=== PATIENT | female | born 1950 | race Caucasian/White ===

== ENCOUNTER → 2020-05-21 13:45 | Outpatient (CLI) | payer MEDICARE, SELFPAY ==
--- NOTE | ~2020-05-21 | MM_ITS ---
EXAMINATION: MM screening [facility] BI w victor m HISTORY: Screening mammogram TECHNIQUE: Craniocaudal and mediolateral oblique 3-D tomosynthesis images were obtained and synthetic 2-D images were generated. CAD analysis was submitted and interpreted. COMPARISON: 03/24/2019, 12/17/2017, 10/24/2016 BREAST PARENCHYMAL COMPOSITION: The breasts are almost entirely fatty. FINDINGS: Stable intramammary lymph nodes are noted in the upper outer quadrant of the breasts. There is no evidence of suspicious mass, calcification, or architectural distortion to suggest malignancy in either breast. There has been no suspicious interval change. IMPRESSION: 1. No mammographic evidence of malignancy. 2. Recommend routine screening mammography in one year. BI-RADS Category 2: Benign finding(s). Reviewed, dictated and finalized at location A. EL SHADER
== END ==
PROVIDERS: Visit Provider Physician Assistant
DX: Z12.31 Encounter for screening mammogram for malignant neoplasm of breast (principal)
CPT/HCPCS: 77063; 77067

== ENCOUNTER → 2020-12-21 12:24 | Outpatient (CLI) | payer MEDICARE, SELFPAY ==
--- NOTE | ~2020-12-21 | MR_ITS ---
EXAMINATION: MR hand RT wo/w con, MR hand LT wo/w con DATE: 12/21/2020 14:04 INDICATION: Rheumatoid arthritis with rheumatoid factor TECHNIQUE: 1. Magnetic resonance imaging (MRI) of the right hand was performed without and with 18 mL Multihance intravenous contrast to include the metacarpals and digits. Proximal carpal rows excluded from the f [id number]. Sequences included axial, sagittal and coronal T1-weighted FSE and T1-weighted FS FSE T 1-weighted FS FSE . 2. Magnetic resonance imaging (MRI) of the right hand was performed without and with 18 mL Multihance intravenous contrast utilizing the same contrast bolus as for the contralateral right hand.. Field-o f-view again includes the metacarpals and digits but excludes the proximal carpal row. Sequences incl uded axial, sagittal and coronal T1-weighted FSE and T1-weighted FS FSE T1-weighted FS FSE . COMPARISON: Bilateral hand radiographs dated 08/15/2018 FINDINGS: Normal alignment at both hands. No fracture. Polyarticular osteoarthritis characterized by nonuniform joint space narrowing and/or marginal osteophytes, severe at the bilateral first interphalangeal shruti nts, moderate severity at the bilateral first carpal metacarpal joints and several bilateral distal i nterphalangeal joints and mild osteoarthritis at the bilateral triscaphe and at many of the remaining metacarpophalangeal and interphalangeal joints. Degenerative subchondral cyst at the base of the rig ht first metacarpal. No joint effusions or abnormal enhancing synovitis at the joint spaces. No enhan cing erosions to suggest inflammatory arthritis such as rheumatoid. The collateral ligament complex a t the metacarpophalangeal and interphalangeal joints are normal. The flexor and extensor tendons are normal. IMPRESSION: 1. Polyarticular osteoarthritis, severe at the bilateral first interphalangeal joints and mild to mod erate with typical distribution at the remaining joints in the bilateral hands. No erosions or enhanc ing synovitis to suggest an inflammatory arthritis such as rheumatoid. Reviewed, dictated and finalized at location A. IMPRESSION: 1. Polyarticular osteoarthritis, severe at the bilateral first interphalangeal joints and mild to moderate with typical distribution at the remaining joints i n the bilateral hands. No erosions or enhancing synovitis to suggest an inflamm atory arthritis such as rheumatoid.
[2020-12-21 12:51] LABS: Estimated Glomerular Filt Rate > 60
== END ==
PROVIDERS: PCP Family Medicine; Visit Provider Internal Medicine
DX: M06.041 Rheumatoid arthritis without rheumatoid factor, right hand (principal); M06.042 Rheumatoid arthritis without rheumatoid factor, left hand
CPT/HCPCS: 73220; A9577

== ENCOUNTER 2021-02-28 02:00 | Day surgery (SDC) | payer MEDICARE, SELFPAY ==
[2021-02-16 15:53] VITALS: BMI 32.3
[2021-02-28 07:08] VITALS: BP 151/75; PULSE 101; RESP 22; TEMP 36.6; O2SAT 98; BMI 31.3
--- NOTE | 2021-02-28 07:08 | WPDANESEPPF ---
Anes - Initial Pre Proc Eval Procedure: Operation Date: 02/28/21 08:15 Proposed Procedures p Screening Colonoscopy - Jermain Acosta MD Date/Time: 02/28/21 07:08 Surgeon: Jermain Acosta MD Pre Op Diagnosis: hx of colon polyps Patient Data Age: 70 Gender: F Height: 1.68 m Weight: 90.9 kg Allergies Allergy/AdvReac Type Severity Reaction Status Date / Time piperacillin Allergy Unknown Rash Verified 02/28/21 07:05 sulfamethizole Allergy Unknown Unknown Verified 02/28/21 07:05 tazobactam Allergy Unknown Rash Verified 02/28/21 07:05 trimethoprim Allergy Unknown Unknown Verified 02/28/21 07:05 Home Medications Medication Instructions Recorded Confirmed Type aspirin 81 mg tablet,delayed 81 mg PO DAILY 07/17/19 02/16/21 History release cetirizine 10 mg tablet 5 mg PO DAILY PRN 07/17/19 02/16/21 History conjugated estrogens 0.625 mg 0.625 mg PO DAILY 07/17/19 02/16/21 History tablet ferrous sulfate 325 mg (65 mg 325 mg PO DAILY 07/17/19 02/16/21 History iron) tablet hydrochlorothiazide 25 mg tablet 12.5 mg PO DAILY #90 tablet 01/23/20 02/16/21 Rx omeprazole 40 mg capsule,delayed 40 mg PO DAILY #90 cap 03/26/20 02/16/21 Rx release levothyroxine 75 mcg tablet 75 mcg PO DAILY #90 tablet 08/16/20 02/16/21 Rx buspirone 7.5 mg tablet 7.5 mg PO BID #60 tablet 09/23/20 02/16/21 Rx amlodipine 5 mg tablet 5 mg PO DAILY #90 tablet 10/21/20 02/16/21 Rx pravastatin 20 mg tablet 20 mg PO DAILY #90 tablet 10/21/20 02/16/21 Rx folic acid 1 mg tablet 1 mg PO DAILY #90 tablet 12/01/20 02/16/21 Rx metformin 500 mg tablet 500 mg PO BID #180 tablet 12/30/20 02/16/21 Rx dicyclomine 20 mg tablet 20 mg PO DAILY #90 tablet 01/27/21 02/16/21 Rx losartan 100 mg tablet 100 mg PO DAILY #90 tablet 01/27/21 02/16/21 Rx duloxetine 60 mg capsule,delayed 60 mg PO BID #180 cap 02/01/21 02/16/21 Rx release leflunomide 20 mg tablet 20 mg PO DAILY #30 tablet 02/01/21 02/16/21 Rx Patient hx anesthesia problems: none Family hx anesthesia problems: none PMFSH Past Medical History Medical History Acute rhinosinusitis Arthritis Kj hy kid w cr kid I-IV CKD (chronic kidney disease), stage III Depression Diabetes Dysuria Hypothyroid Irritable bowel disease Postablative hypothyroidism Seronegative rheumatoid arthritis of both hands Thyroid disease Type 2 diabetes mellitus with chronic kidney disease Surgical History Surgical History H/O repair of rotator cuff H/O: hysterectomy Hx of cholecystectomy Family History Family History Grandparent Diabetes mellitus Family history of cardiovascular disease Sibling Family history of malignant neoplasm Mother Family history of Parkinson's disease Father Family history of Hodgkin's lymphoma Other Family history of arthritis Social History Social History Smoking status: Former smoker Tobacco type: cigarettes Smoking end date: 07/09/03 Alcohol intake: never Substance use: never Substance use type: does not use Living arrangements: with family Gender identity (if verbalized by the patient): Female Spiritual care concerns: No Anes - Eval Final PreProcedure Day of Procedure 02/28/21 07:08 Patient weight: obese Heart: regular rate and rhythm Lungs: clear to auscultation and normal air movement Airway: Mallampati scale class II Neurological: alert and oriented Last oral intake: >/= 8 hours ASA classification: III Emergent: no Anesthetic plan: proceed Anesthesia type and monitoring: general GIVS Informed Consent: The patient's anesthetic plan and its attendant risks and benefits were discussed with the patient/family/POA. Questions were solicited and answers provided to the satisfaction of the patient/family/POA.
--- NOTE | 2021-02-28 07:20 | WPDGICN ---
Assessment and Plan Assessment and plan (1) History of colon polyps: Code(s): Z86.010 - Personal history of colonic polyps Status: Acute Assessment and Plan: Patient has a history of colon polyps most recently 2016. Plan is for surveillance colonoscopy at this time. Consider follow-up exams at 5 year intervals. (2) Irritable bowel syndrome with diarrhea: Code(s): K58.0 - Irritable bowel syndrome with diarrhea Status: Acute Assessment and Plan: Patient has diarrhea most consistent with irritable bowel syndrome occurs intermittently. Plan is to add fiber supplementation. Current trial of dicyclomine has failed would suggest discontinuing this medication and less cramps occur. Additionally diarrhea may be related to use medications such as metformin in re considering use of this medication should be considered. GI Consult Note Consult date/time: 02/28/21 07:20 HPI: Sarina Guzman is a 70 year old female Presents for screening colonoscopy. Patient has a known history of colon polyps most recently [address] Ramirez. patient denies any blood in her stools. She does note irregular bowel habits with diarrhea alternating with formed stools on the same day. She states this pattern has been present for several years. She denies any weight loss or bleeding. She is on no specific diet. In the past she was told she had diverticulosis. Family history is noncontributory. Patient does have a past medical history of diabetes and is on metformin. She does on multiple at home other medications include dicyclomine as treatment for known irritable bowel syndrome. Review of Systems Review of Systems: All systems reviewed & are unremarkable except as noted in HPI and below PMFSH Past Medical History Medical History (Updated 02/28/21 @ 07:23 by Jermain Acosta MD) Acute rhinosinusitis Arthritis Kj hy kid w cr kid I-IV CKD (chronic kidney disease), stage III Depression Diabetes Dysuria Hypothyroid Irritable bowel disease Postablative hypothyroidism Seronegative rheumatoid arthritis of both hands Thyroid disease Type 2 diabetes mellitus with chronic kidney disease Surgical History Surgical History H/O repair of rotator cuff H/O: hysterectomy Hx of cholecystectomy Family History Family History Grandparent Diabetes mellitus Family history of cardiovascular disease Sibling Family history of malignant neoplasm Mother Family history of Parkinson's disease Father Family history of Hodgkin's lymphoma Other Family history of arthritis Social History Social History Smoking status: Former smoker Tobacco type: cigarettes Smoking end date: 07/09/03 Alcohol intake: never Substance use: never Substance use type: does not use Living arrangements: with family Gender identity (if verbalized by the patient): Female Spiritual care concerns: No Meds Home Medications and Allergies Home Medications Medication Instructions Recorded Confirmed Type aspirin 81 mg tablet,delayed 81 mg PO DAILY 07/17/19 02/16/21 History release cetirizine 10 mg tablet 5 mg PO DAILY PRN 07/17/19 02/16/21 History conjugated estrogens 0.625 mg 0.625 mg PO DAILY 07/17/19 02/16/21 History tablet ferrous sulfate 325 mg (65 mg 325 mg PO DAILY 07/17/19 02/16/21 History iron) tablet hydrochlorothiazide 25 mg tablet 12.5 mg PO DAILY #90 tablet 01/23/20 02/16/21 Rx omeprazole 40 mg capsule,delayed 40 mg PO DAILY #90 cap 03/26/20 02/16/21 Rx release levothyroxine 75 mcg tablet 75 mcg PO DAILY #90 tablet 08/16/20 02/16/21 Rx buspirone 7.5 mg tablet 7.5 mg PO BID #60 tablet 09/23/20 02/16/21 Rx amlodipine 5 mg tablet 5 mg PO DAILY #90 tablet 10/21/20 02/16/21 Rx pravastatin 20 mg tablet 20 mg PO DAILY #90 tab
[2021-02-28 07:23] LABS: Glucose Point of Care 152 mg/dl (65-105)
[2021-02-28] MEDS: LACTATED RINGERS 1,000 ML 150 ML IV CONT (07:23)
[2021-02-28 08:22] VITALS: BP 122/64; PULSE 82; RESP 18; O2SAT 96
[2021-02-28 08:32] VITALS: BP 134/69; PULSE 80; RESP 18; O2SAT 97
[2021-02-28 08:40] VITALS: BP 150/66; PULSE 76; RESP 18; O2SAT 96
== END 2021-02-28 08:57 | disposition home or self-care (01) ==
PROVIDERS: PCP Family Medicine; Visit Provider Internal Medicine Gastroenterology
PROC: 0DJD8ZZ Inspection of Lower Intestinal Tract, Via Natural or Artificial Opening Endoscopic (ICD-10-PCS; CPT 45378; principal; 2021-02-28 08:15)
DX: Z12.11 Encounter for screening for malignant neoplasm of colon (principal); K64.8 Other hemorrhoids; K57.30 Diverticulosis of large intestine without perforation or abscess without bleeding; Z86.010 Personal history of colon polyps; K58.0 Irritable bowel syndrome with diarrhea; Z79.82 Long term (current) use of aspirin; Z79.84 Long term (current) use of oral hypoglycemic drugs; Z87.891 Personal history of nicotine dependence; M19.90 Unspecified osteoarthritis, unspecified site; F32.9 Major depressive disorder, single episode, unspecified; E89.0 Postprocedural hypothyroidism; M06.042 Rheumatoid arthritis without rheumatoid factor, left hand; M06.041 Rheumatoid arthritis without rheumatoid factor, right hand; E11.22 Type 2 diabetes mellitus with diabetic chronic kidney disease; N18.30 Chronic kidney disease, stage 3 unspecified; E66.9 Obesity, unspecified; Z68.31 Body mass index [BMI] 31.0-31.9, adult
CPT/HCPCS: G0105; 82948; J2704; J7120

== ENCOUNTER → 2021-07-26 11:23 | Outpatient (CLI) | payer MEDICARE, SELFPAY ==
--- NOTE | ~2021-07-26 | XR_ITS ---
EXAMINATION: XR shoulder LT min 2V DATE: 07/26/2021 12:04 INDICATION: Left shoulder pain TECHNIQUE: AP internally and externally rotated, AP oblique externally rotated and axillary views of the left shoulder were obtained. COMPARISON: None FINDINGS: Prior distal left clavicle resection with widening of the left acromioclavicular joint space. Alignme nt is otherwise normal. No fracture.Mild glenohumeral osteoarthritis with mild nonuniform joint space narrowing in the Grashey projection and small marginal osteophytes about the glenoid and humeral hea d. Visualized portions of the lungs are clear. Soft tissues are unremarkable. IMPRESSION: 1. Mild left glenohumeral osteoarthritis. 2. Distal left clavicle resection. Reviewed, dictated and finalized at location A. MANAGER
--- NOTE | ~2021-07-26 | XR_ITS ---
EXAMINATION: XR_CERV2-3V_CR DATE: 07/26/2021 12:04 INDICATION: Pain in unspecified shoulder. TECHNIQUE: 3 views of cervical spine were obtained. COMPARISON: None. FINDINGS: Bone alignment is normal. Vertebral body heights are normal. There is moderately decreased disc height at C4-C5, mildly decreased disc height at C5-C6, and moderately decreased disc height at C6-C7. There is multilevel uncovertebral joint osteoarthritis, moderate to severe bilaterally from C4 -C5 through C6-C7. The facet joints are unremarkable. There is mild mild central canal stenosis at C4 -C5, C5-C6, and C6-C7. No prevertebral soft tissue swelling. IMPRESSION: 1. Moderate cervical spondylosis. Reviewed, dictated and finalized at location A. BALL SCOUT
== END ==
PROVIDERS: Visit Provider Physician Assistant
DX: M25.519 Pain in unspecified shoulder (principal); M54.2 Cervicalgia; M47.812 Spondylosis without myelopathy or radiculopathy, cervical region; M19.012 Primary osteoarthritis, left shoulder
CPT/HCPCS: 72040; 73030

== ENCOUNTER → 2021-08-01 13:36 | Outpatient (CLI) | payer MEDICARE, SELFPAY ==
--- NOTE | ~2021-08-01 | MM_ITS ---
EXAMINATION: MM screening [facility] BI w [place] m HISTORY: Screening mammogram TECHNIQUE: Craniocaudal and mediolateral oblique 3-D tomosynthesis images were obtained and synthetic 2-D images were generated. CAD analysis was submitted and interpreted. COMPARISON: 05/21/2020, 03/24/2019, 12/17/2017 BREAST PARENCHYMAL COMPOSITION: The breasts are almost entirely fatty. FINDINGS: There is no evidence of suspicious mass, calcification, or architectural distortion to sugg est malignancy in either breast. There has been no suspicious interval change. IMPRESSION: 1. No mammographic evidence of malignancy. 2. Recommend routine screening mammography in one year. BI-RADS Category 1: Negative Reviewed, dictated and finalized at location A. ICAL LAB SPECIALIST
== END ==
PROVIDERS: PCP Family Medicine; Visit Provider Family Medicine
DX: Z12.31 Encounter for screening mammogram for malignant neoplasm of breast (principal)
CPT/HCPCS: 77063; 77067

== ENCOUNTER 2021-11-04 12:30 | Outpatient (RCR) | payer MEDICARE, SELFPAY ==
[2021-09-29 12:30] VITALS: BP_SYST 180
--- NOTE | 2021-09-29 13:39 | PTOPEVAL ---
Thank you for referring Sarina Guzman to [facility] [place].? The patient is scheduled to be seen for therapy?2 x/week for 6 weeks. Please review, sign, date and return this plan of care ORALIA. I agree with and certify that the following plan of care is medically necessary. Referring Physician Date Attending Provider: Kiara Soto PA-C Referring Provider: Kiara Soto PA-C Problem Diagnosis neck and right UE pain Onset 6 wks ago Additional Evaluation Detail x-ray: showed Moderate changes /degeneration of the cervical spine and Osteoarthritis of the shoulder and left clavicle resection. Subjective Information She reports limitations with Query Text:As Reported By Patient/ lifting, reaching task and ADL's. Family She has difficulty with sleeping due to left UE symptoms. She is also having increased symptoms of right hand. She is not sure if the increased symptoms are from her shoulder or neck region. History of 'pinched nerve of neck . Denies any HEP or fitness program. Diagnostic Tests X-Rays For This Problem Yes Previous Treatments Previous Treatments For This Problem chiropractor Pain Assessment Left Arm(s) Reported Pain Level 8 Pain Description Numbness,Radiating,Tingling Pain Frequency Continuous Lowest Pain Intensity 4 Greatest Pain Intensity 10 Pain Aggravating Factors Prolonged Position Posterior Neck Reported Pain Level 0 Lowest Pain Intensity 0 Greatest Pain Intensity 0 Cervical and Lumbar ROM Cervical ROM Cervical Flexion (0-60) 70:Active in Degrees Cervical Extension (0-70) 60:Active in Degrees Cervical Lateral Flexion Right (0-50) 15:Active in Degrees Cervical Lateral Flexion Left (0-50) 20Active in Degrees Cervical Rotation Right (0-90) 40Active in Degrees Cervical Rotation Left (0-90) 52:Active in Degrees Cervical ROM Comments tightness with rotation and pain with tightness on lateral flex Upper Extremity Range of Motion Scapular/ Shoulder Range of Motion Left Shoulder Flexion - Active 145 Shoulder Flexion - Passive 170 Shoulder Extension - Active 35 Shoulder Abduction - Active 135 Shoulder Abduction - Passive 180 Shoulder Medial Rotation - Active 70 Shoulder M
--- NOTE | 2021-11-04 13:18 | PTOPEVAL ---
Thank you for referring Sarina Guzman to [facility].? Pt referred to therapy due to actue flare-up of neck pain with left UE symptoms and recent onset of right hand pain. She has attended 11 therapy visits from 09/29/21 to 11/04/21. As a result of therapy services she reportes improved pain and symptoms, improved shoulder motion with daily task, improved sleeping, and improved ADL's/IADL's with decreased symptoms. She demonstrates improved neck and shoulder motion, improved shoulder strength, improved scapular stability, and improved tissue restrictions. Shoulder pain and disabilty index (SPADI) 35% impaired at eval and 9% impaired at update. Sarina has achieved or partially achieved her therapy goals at this time. She demonstrates understanding and compliance with HEP. She has reached maximal potential with skilled therapy services at this time. Will DC skilled PT services with recommendations for her to cont with her HEP Please review, sign, date and return this discharge summary ORALIA. I agree with and certify that the following plan of care is medically necessary. Referring Physician Date Attending Provider: Kiara Soto PA-C Referring Provider: Kiara Soto PA-C Diagnosis neck and right UE pain Onset 6 wks ago Additional Evaluation Detail x-ray: showed Moderate changes /degeneration of the cervical spine and Osteoarthritis of the shoulder and left clavicle resection. Subjective Information Reports her pain and symptoms Query Text:As Reported By Patient/ have improved with therapy. Family She has decreased intensity of the neck and UE. She is not waking at night due to pain and symptoms. She is sleeping 8 hrs. She is performing her HEP and neck distraction unit consistently. Reports improved ADL's/IADL's. Pain Assessment Self Report Pain Assessment Left Arm(s) Reported Pain Level 3 Pain Description Aching,Soreness Lowest Pain Intensity 0 Greatest Pain Intensity 3 Posterior Neck Reported Pain Level 3 Lowest Pain Intensity 0 Greatest Pain Intensity 3 Cervical and Lumbar ROM Cervical ROM Cervical Flexion (0-60) 70 Degrees Cervical Extension (0-70) 60 Degrees Cervical Lateral Flexion Right (0-50) 20 Degrees Cervical Lateral Flexion Left (0-50) 25 Degrees Cervical Rotation Right (0-90) 55 Degrees Cervical Rotation Left (0-90) 55 Degrees Cervical ROM Comments no pain, mild tightness noted Upper Extremity Range of Motion Scapular/ Shoulder Range of Motion Left Shoulder Flexion - Active 160 Shoulder Extension - Active 50 Shoulder Abduction - Active
== END 2021-11-04 13:59 | disposition home or self-care (01) ==
LOC: ANHPT 12:30
PROVIDERS: PCP Family Medicine; Referring Provider Physician Assistant; Visit Provider Physician Assistant
DX: M25.511 Pain in right shoulder (principal); M79.641 Pain in right hand; M54.2 Cervicalgia
CPT/HCPCS: 97014; 97110; 97112; 97140; 97162; G0283

== ENCOUNTER → 2021-11-25 06:54 | Outpatient (CLI) | payer MEDICARE, SELFPAY ==
--- NOTE | ~2021-11-25 | MR_ITS ---
EXAMINATION: MR cervical spine wo con DATE: 11/25/2021 07:32 INDICATION: Neck pain. TECHNIQUE: Magnetic resonance imaging (MRI) of the cervical spine was performed without intravenous c ontrast. Sequences included sagittal T2-weighted FSE, sagittal T2-weighted FS FSE, sagittal T1-weight ed FSE, axial MERGE, and axial T2-weighted FSE. COMPARISON: Cervical spine MRI 05/30/2014 FINDINGS: 2 mm anterolisthesis of C7 on T1. Vertebral body heights are normal. There is mildly decrea sed disc height at C4-C5, C5-C6, and C6-C7. The spinal cord signal intensity is normal. The following disc levels are specifically discussed: C2-C3: The disc does not extend beyond the endplate margin. There is mild bilateral uncovertebral shruti nt osteoarthritis. There is mild bilateral facet joint osteoarthritis. There is no neural foraminal s tenosis. There is no central canal stenosis. C3-C4: There is a central extrusion. There is mild bilateral uncovertebral joint osteoarthritis. Ther e is no facet joint osteoarthritis. There is mild right neural foraminal stenosis. There is mild cent ral canal stenosis. C4-C5: The disc is bulging with superimposed central extrusion. There is severe bilateral uncovertebr al joint osteoarthritis. There is mild bilateral facet joint osteoarthritis. There is moderate bilate ral neural foraminal stenosis. There is moderate central canal stenosis with ventral and dorsal inden tation of the spinal cord. C5-C6: The disc is bulging with superimposed left central extrusion. There is severe bilateral uncove rtebral joint osteoarthritis. There is mild bilateral facet joint osteoarthritis. There is moderate b ilateral neural foraminal stenosis. There is moderate central canal stenosis with ventral and dorsal indentation of the spinal cord. C6-C7: The disc is bulging. There is severe bilateral uncovertebral joint osteoarthritis. There is mi ld bilateral facet joint osteoarthritis. There is moderate bilateral neural foraminal stenosis. There is mild central canal stenosis with ventral indentation of the spinal cord. C7-T1: The disc does not extend beyond the endplate margin. There is no uncovertebral joint osteoarth ritis. There is severe bilateral facet joint osteoarthritis. There is mild bilateral neural foraminal stenosis. There is no central canal stenosis. IMPRESSION: 1. Moderate cervical spondylosis, mildly worsened from 05/30/2014. Reviewed, dictated and finalized at location A.
== END ==
PROVIDERS: PCP Family Medicine; Visit Provider Physician Assistant
DX: M47.813 Spondylosis without myelopathy or radiculopathy, cervicothoracic region (principal); M48.03 Spinal stenosis, cervicothoracic region
CPT/HCPCS: 72141

== ENCOUNTER → 2022-03-20 11:17 | Outpatient (CLI) | payer MEDICARE, SELFPAY ==
--- NOTE | ~2022-03-20 | XR_ITS ---
EXAMINATION: XR shoulder RT min 2V DATE: 03/20/2022 11:34 INDICATION: Right shoulder pain TECHNIQUE: AP internally and externally rotated, AP oblique externally rotated and axillary views of the right shoulder were obtained. COMPARISON: None FINDINGS: Normal alignment. No fracture.Moderate right glenohumeral and acromioclavicular osteoarthritis. Nume katia tiny densities are present within the patient's clothing which project over the soft tissues whi ch are otherwise unremarkable. Visualized right lung is clear. IMPRESSION: Moderate right glenohumeral and acromioclavicular osteoarthritis. Reviewed, dictated and finalized at location A.
== END ==
PROVIDERS: PCP Family Medicine; Visit Provider Physician Assistant
DX: M25.511 Pain in right shoulder (principal); M19.011 Primary osteoarthritis, right shoulder
CPT/HCPCS: 73030

== ENCOUNTER 2022-07-11 09:41 | Outpatient (CLI) | payer MEDICARE, SELFPAY ==
--- NOTE | ~2022-07-11 | NM_ITS ---
EXAMINATION: NM lawanda stress w perfusion DATE: 07/11/2022 12:24 INDICATION: Abnormal electrocardiogram. Dyspnea on exertion. TECHNIQUE: Rest images were obtained following intravenous administration of 9.9 mCi Tc99m tetrofosmi n (Myoview). The patient was infused intravenously with Lexiscan (regadenoson). Then, 31.1 mCi Tc99m tetrofosmin (Myoview) was administered intravenously, and stress images were obtained. Data was recon structed into short axis and horizontal and vertical long axis SPECT images. Gated SPECT images were also obtained. COMPARISON: None. FINDINGS: There is no definite reversible or fixed perfusion abnormality to suggest ischemia or infar ction. There is no segmental wall motion abnormality. Left ventricular ejection fraction measures > 70%. IMPRESSION: 1. No definite ischemia or infarct. 2. Normal left ventricular ejection fraction measuring > 70%. Reviewed, dictated and finalized at location A. [employer] H[employer]
--- NOTE | 2022-07-11 10:07 | EST_ITS ---
Patient Info Name: Sarina Guzman Age: 72 years : 1950 Gender: Female Ht: 66 in Wt: 210 lbs BSA: 2.14 m2 HR: 83 bpm BP: 141 / 69 mmHg Heart Rhythm: Right Bundle Branch Block Exam Date: 07/11/2022 10:46 AM Exam Location: [facility] Stress Patient Status: Outpatient Admit Date: 07/11/2022 Staff Ordering Physician: Kiara Cortez PA-C Attending Provider: Kiara Cortez PA-C Exercise Technologist: Paige Kennedy, CT Exam Type: CA stress lawanda w NM Study Info Indications R94.31 - Abnormal electrocardiogram ECG EKG A regadenoson stress test was performed. Summary 1. No abnormal ST/T wave changes diagnostic of ischemia with Lexiscan. 2. Please correlate with nuclear medicine images, reported separately. Protocol: Lexiscan Stress ECG Details Stage: REST Duration (min): 1 min : 28 sec HR (bpm): 85 SBP (mmHg): 141 DBP (mmHg): 69 Stage: REST Duration (min): 1 min : 49 sec HR (bpm): 83 SBP (mmHg): 141 DBP (mmHg): 69 Stage: REST Duration (min): 6 min : 14 sec HR (bpm): 82 SBP (mmHg): 141 DBP (mmHg): 69 Stage: STAGE 1 Duration (min): 0 min : 59 sec HR (bpm): 96 SBP (mmHg): 144 DBP (mmHg): 73 Stage: RECOVERY Duration (min): 1 min : 0 sec HR (bpm): 100 SBP (mmHg): 144 DBP (mmHg): 73 Stage: RECOVERY Duration (min): 2 min : 0 sec HR (bpm): 93 SBP (mmHg): 144 DBP (mmHg): 73 Stage: RECOVERY Duration (min): 3 min : 0 sec HR (bpm): 89 SBP (mmHg): 151 DBP (mmHg): 75 Stage: RECOVERY Duration (min): 3 min : 2 sec HR (bpm): 90 SBP (mmHg): 151 DBP (mmHg): 75 Rest HR: 82 bpm Peak HR: 100 bpm Rest Sys BP: 141 mmHg Peak Sys BP: 151 mmHg Max Pred HR: 146 bpm % Max Pred HR: 68 % Target HR: 124 bpm Max RPP: 15,100 bpm*mmHg Total Time: 1 min : 0 sec Rest Whitehead BP: 69 mmHg Peak Whitehead BP: 75 mmHg Total Dose: 0.4 mg Resting ECG Sinus rhythm with right bundle branch block. Stress ECG Sinus rhythm with right bundle branch block. No abnormal ST/T wave changes diagnostic of ischemia with Lexiscan. Arrhythmias Occasional PVCs. Report Signatures
== END 2022-07-11 09:42 | disposition home or self-care (01) ==
PROVIDERS: PCP Family Medicine; Visit Provider Physician Assistant
DX: R06.09 Other forms of dyspnea (principal); K76.0 Fatty (change of) liver, not elsewhere classified; I10 Essential (primary) hypertension; E78.5 Hyperlipidemia, unspecified; E11.9 Type 2 diabetes mellitus without complications; R94.31 Abnormal electrocardiogram [ECG] [EKG]; I45.10 Unspecified right bundle-branch block
CPT/HCPCS: 78452; 93017; A9502; J2785

== ENCOUNTER → 2022-10-04 11:10 | Outpatient (CLI) | payer MEDICARE, SELFPAY ==
--- NOTE | ~2022-10-04 | XR_ITS ---
Clinical Indication: Chronic cough PA and lateral views of the chest: Comparison: None Findings: The lungs are clear, without evidence of focal consolidation or pleural effusion. Cardiome diastinal silhouette is within normal limits. Bones and soft tissues are unremarkable. Impression: Normal chest. Reviewed, dictated and finalized at location . Impression: Normal chest.
== END ==
PROVIDERS: PCP Family Medicine; Visit Provider Physician Assistant
DX: R05.3 Chronic cough (principal)
CPT/HCPCS: 71046

== ENCOUNTER 2022-11-22 13:30 | Outpatient (RCR) | payer MEDICARE, SELFPAY ==
[2022-11-06 10:50] VITALS: BP_SYST 155
--- NOTE | 2022-11-06 11:33 | PTOPEVAL1 ---
Assessment and note entered by Donna Clements, PT Evaluation Information Assessment Status Evaluation Diagnosis R shoulder impingement Onset May 2022 Subjective Information over the past 6 months, more pain in shoulder; no trauma or injury to shoulder; had injection at dr office- helped for about 2 weeks, now pain has returned; R shoulder xray 2021 reports: moderate R glenohumeral and AC joint OA; cervical MRI 2021: decrease disc height C 4-5-6-7 facet joint OA and disc bulging at C 3-4, C 4-5 and C 5-6; Reported Pain Level Pain Score Self Report Additional Pain Score Comments pain range of 1-10/10;anterior-medial humerus- to distal elbow and anterior shoulder joint; increase pain with driving, lifting 15# dog onto the couch, taking shirt off--reaching overhead; decrease pain with rest, voltran muscle cream; heat; sleeping is OK; R is her dominant side; Assessment PT Clinical Summary Sarina has the diagnosis of R shoulder impingement. She reports gradual increase in pain, decreased use of R arm and driving causes pain. Her medical history includes L shoulder rotator cuff surgery. Xray of shoulder report states: moderate glenohumeral and acromial-clavicular OA. Her cervical MRI report states decreased disc height, facet joint OA and bulging discs. With the evaluation she has poor standing position of cervical-thoracic spine and shoulder; decreased active ROM of R shoulder, with IR the most painful motion; decreased strength of R shoulder; Skilled PT services are indicated for modalities to decrease pain; therapeutic exercises to increase active ROM and strength of shoulder and education for home exercise and posture. Plan of Care Interventions Electrical Stimulation,Hot Pack/Cold Pack,Manual Therapy,Neuro Re-education,Patient/Caregiver Education,Therapeutic Activities,Therapeutic Exercise,Ultrasound,Other Other Interventions taping, instrument assisted manual therapy PT Services Indicated Yes Treatment Frequency and 2x/wk for 3 weeks Duration
--- NOTE | 2022-11-22 14:00 | PTOPDC ---
Assessment and note entered by Donna Clements, PT Evaluation Information Assessment Status Discharge Diagnosis R shoulder impingement Onset May 2022 Subjective Information Sarina reports: shoulder is better; is doing the exercises at home; have pulleys at home; is doing everything she needs to do; Reported Pain Level Pain Score Self Report Additional Pain Score Comments pain range of 0-2/10 in the past week; little sore over biceps and other shoulder hurts too; am able to drive without shoulder hurting; no longer have the screaming pain in my shoulder; Assessment PT Clinical Summary Sarina has received 6 PT sessions. Compared to the initial evaluation: pain rating at the worst has decreased from 10 to 2/10; no longer has tenderness over bicep and forearm; does not have pain with driving; is able to do everything she needs to do at home; R shoulder active flexion and abduction ranges have increased continues to have pain increase with shoulder IR- with range limited to reaching behind her dyeing machine back tender to waist, which is the same as her L side; strength has increased R shoulder-doing all of her normal home tasks and in standing, can use 3# hand wt for flexion and abduction strengthening; Education has been completed for home exercises. The goals were achieved, except IR active ROM. Discharge PT, continue with home exercises and monitor her posture/position of shoulder. Plan of Care PT Services Indicated No
== END 2022-11-23 09:35 | disposition home or self-care (01) ==
LOC: ANHPT 13:30
PROVIDERS: PCP Family Medicine; Visit Provider Nurse Practitioner
DX: M75.41 Impingement syndrome of right shoulder (principal)
CPT/HCPCS: 97014; 97110; 97140; 97161; 97530; G0283

== ENCOUNTER 2023-01-12 12:17 | Emergency (ER) | payer MEDICARE, SELFPAY ==
[2023-01-12 12:24] VITALS: BP 167/87; PULSE 96; RESP 18; TEMP 36.4; O2SAT 98
[2023-01-12 13:26] LABS: Appearance Urine Cloudy (Clear); Bacteria Urine 1+ /hpf; Bilirubin Urine Negative (Negative); Blood Urine Negative (Negative); Color Urine Yellow (Yellow); Glucose Urine UA Negative (Negative); Ketones Urine Trace mg/dL (Negative); Leukocyte Esterase Ur Negative LEU/UL (Negative); Need Manual Microscopic Need Manual; Nitrate Urine Negative (Negative); Non Pathogenic Casts 0-2; Protein Urine Negative (Negative); Specific Grav Ur 1.018 (1.001-1.035); Squamous Epithelial Cell Urine Few /hpf (Few); Urobilinogen Urine 0.2 mg/dL (<2.0); WBC Urine 0-5 /hpf; pH Urine 5.5 (5.0-9.0)
--- NOTE | 2023-01-12 13:33 | ED.FEMALEGU ---
HPI - Female Genitourinary General Chief complaint: Urogenital-Female Stated complaint: Burning while urinating Time Seen by Provider: 01/12/23 12:26 History of Present Illness HPI Narrative: 72-year-old female presented the emergency department for evaluation of frequent urinary symptoms and a recurrent yeast infection. Patient did have follow-up with her primary care physician and was on 2 different courses of Macrobid. Patient states she is still having symptoms of dysuria. Related Data Home Medications Medication Instructions Recorded Confirmed aspirin 81 mg tablet,delayed 81 mg PO DAILY 07/17/19 01/02/23 release cetirizine 10 mg tablet (Zyrtec) 5 mg PO DAILY PRN Allergy Symptoms 07/17/19 01/02/23 Allergies Allergy/AdvReac Type Severity Reaction Status Date / Time piperacillin Allergy Unknown Rash Verified 01/12/23 12:29 tazobactam Allergy Unknown Rash Verified 01/12/23 12:29 trimethoprim Allergy Unknown Unknown Verified 01/12/23 12:29 Review of Systems Review of Systems: All systems reviewed & are unremarkable except as noted in HPI and below PMFSH Past Medical History Medical History (Updated 01/12/23 @ 14:54 by Ryan Gonzalez MD) Acute rhinosinusitis Arthritis Kj hy kid w cr kid I-IV CKD (chronic kidney disease), stage III Depression Diabetes Dysuria Hypothyroid Irritable bowel disease Postablative hypothyroidism Seronegative rheumatoid arthritis of both hands Thyroid disease Type 2 diabetes mellitus with chronic kidney disease Surgical History Surgical History H/O repair of rotator cuff H/O: hysterectomy Hx of cholecystectomy Family History Family History Grandparent Diabetes mellitus Family history of cardiovascular disease Sibling Family history of malignant neoplasm Mother Family history of Parkinson's disease Father Family history of Hodgkin's lymphoma Other Family history of arthritis Social History Social History Smoking status: Former smoker Tobacco type: cigarettes Smoking end date: 07/09/03 Alcohol intake: never Substance use: never Substance use type: does not use Lack of Transportation: No Lack of Food: Never True Current Housing: I Have Housing Concerned About Future Housing: No Difficulty Paying Gas/Electric Bills: No Currently Unemployed: No Education: High School Diploma/GED Difficulty w/ Childcare or Family Care: No Living arrangements: alone Occupation/Education: retired Gender identity (if verbalized by the patient): Female Sexual Orientation (if Verbalized by the Patient): Straight or Heterosexual Spiritual care concerns: No Exam Narrative: APPEARANCE: Well appearing, no pain, no distress, well-nourished. HEAD: normocephalic, atraumatic. EYES: PERRLA/EOMI, conjunctivae clear. NOSE: Normal no drainage NECK: Supple. No adenopathy, no masses. RESPIRATORY: Airway patent, respirations nonlabored. Clear to auscultation bilaterally, no rales, rhonchi, wheezing. CARDIOVASCULAR: Regular rate and rhythm without murmurs rubs or gallops. ABDOMINAL: Soft, nontender, nondistended, normal bowel sounds Pelvic exam: No significant vaginal discharge or erythema MUSCULOSKELETAL: Moves all extremities. Strength/ROM intact, No edema, No calf tenderness. NEURO: Alert. Cranial nerves II through XII intact. Good gait. Good coordination SKIN: Warm, dry. Normal Color PSYCHIATRIC: Normal affect/mood. Course Course Emergency Course: 72-year-old female presented the emergency department for evaluation of burning with urination and vaginal burning. Patient was treated with antibiotics for possible underlying urinary tract infection and was also started on fluconazole. Patient was encouraged close follow-up with her primary care physician. Vital Signs Vital signs: Vit
[2023-01-12 13:41] LABS: RBC Urine 0-2 /hpf (0-2)
[2023-01-12 13:43] LABS: Add Urine Microscopic? YES
[2023-01-12] MEDS: levoFLOXacin 750 MG TABLET PO (15:26)
[2023-01-12] MEDS: FLUCONAZOLE 150 MG TABLET PO (15:26)
== END 2023-01-12 15:35 | disposition home or self-care (01) ==
PROVIDERS: Emergency Provider Emergency Medicine; PCP Family Medicine
DX: R30.0 Dysuria (principal); R10.2 Pelvic and perineal pain; E11.22 Type 2 diabetes mellitus with diabetic chronic kidney disease; I12.9 Hypertensive chronic kidney disease with stage 1 through stage 4 chronic kidney disease, or unspecified chronic kidney disease; N18.30 Chronic kidney disease, stage 3 unspecified; E03.9 Hypothyroidism, unspecified; M06.042 Rheumatoid arthritis without rheumatoid factor, left hand; M06.041 Rheumatoid arthritis without rheumatoid factor, right hand; M19.90 Unspecified osteoarthritis, unspecified site; K58.9 Irritable bowel syndrome, unspecified; Z87.891 Personal history of nicotine dependence; Z90.710 Acquired absence of both cervix and uterus; Z90.49 Acquired absence of other specified parts of digestive tract; Z79.82 Long term (current) use of aspirin; Z79.84 Long term (current) use of oral hypoglycemic drugs
CPT/HCPCS: 81001; 87070; 87491; 87591; 87808; 99284; A9270

== ENCOUNTER → 2023-02-22 12:23 | Outpatient (CLI) | payer MEDICARE, SELFPAY ==
--- NOTE | ~2023-02-22 | MR_ITS ---
EXAMINATION: MR shoulder LT wo con DATE: 02/22/2023 13:05 INDICATION: Left shoulder pain TECHNIQUE: Magnetic resonance imaging (MRI) of the left shoulder was performed without intravenous co ntrast. Sequences included axial PD-weighted FS FSE, coronal oblique PD-weighted FS FSE, coronal obli que T2-weighted FS FSE, sagittal PD-weighted FS FSE, and sagittal T1-weighted SE. COMPARISON: Left shoulder radiographs dated 02/01/2023 FINDINGS: Coracoacromial arch: The acromion undersurface is flat in morphology (type I) with thinning of the lateral acromion consis tent with likely prior acromioplasty including resection of the acromial side of the coracoacromial l igament. Distal left clavicle resection. Rotator cuff: The supraspinatus, infraspinatus and teres minor tendons are normal. Mild subscapularis tendinopathy with small ganglion cyst arising from a small longitudinal split tear extending between the otherwise intact appearing fibers at the central aspect of the distal tendon. Normal rotator cuff muscle bulk and signal. Biceps tendon, glenoid labrum and glenohumeral cartilage: Long head of the biceps tendon is normal. Small linear tear at the base of the 10:00 position of the posterosuperior glenoid labrum with labral degeneration characterized by more amorphous mild increase d signal with poorly defined margins to a more cephalad posterior superior labrum. Deep chondral ulce ration along the posterosuperior quadrant of the glenoid with mild degenerative subarticular cystic c hanges along the posterior superior rim. Large 10 x 7 x 7 mm subchondral cyst underlying the anterior glenoid. Additional partial thickness cartilage loss appears to involve greater than 50% the cartila ge thickness at the superomedial aspect of the humeral head. Small marginal osteophytes about the hum eral head. Fluid: Small glenohumeral joint effusion with fluid and mild synovitis at the axillary recess, deep subscapu lar recess and along the long head biceps tendon sheath. No loose osteochondral bodies. Small amount of fluid in the subacromial/subdeltoid bursa consistent with mild bursitis. Bones: Bone alignment is normal. No fracture or pathologic marrow replacing process. IMPRESSION: 1. Moderate left glenohumeral osteoarthritis with high-grade chondromalacia at the glenoid and small glenohumeral joint effusion. 2. Degeneration of the posterosuperior glenoid labrum with more discrete linear tear at the chondral labral junction at the 10:00 position. 3. Mild subscapularis tendinopathy with very small longitudinal split tear at the central aspect of t he distal tendon. 4. Mild subacromial/subdeltoid bursitis. 5. Postoperative change of prior acromioplasty and distal clavicle resection. Reviewed, dictated and finalized at location A. IMPRESSION: 1. Moderate left glenohumeral osteoarthritis with high-grade chondromalacia at the glenoid and small glenohumeral joint effusion. 2. Degeneration of the posterosuperior glenoid labrum with more discrete linear tear at the chondral labral junction at the 10:00 position. 3. Mild subscapularis tendinopathy with very small longitudinal split tear at t he central aspect of the distal tendon. 4. Mild subacromial/subdeltoid bursitis. 5. Postoperative change of prior acromioplasty and distal clavicle resection.
== END ==
PROVIDERS: PCP Family Medicine; Visit Provider Nurse Practitioner
DX: M25.512 Pain in left shoulder (principal); M19.012 Primary osteoarthritis, left shoulder; M94.212 Chondromalacia, left shoulder; M75.52 Bursitis of left shoulder; S46.012A Strain of muscle(s) and tendon(s) of the rotator cuff of left shoulder, initial encounter; T14.90XA Injury, unspecified, initial encounter
CPT/HCPCS: 73221

== ENCOUNTER 2023-03-07 12:55 | Outpatient (CLI) | payer MEDICARE, SELFPAY ==
--- NOTE | ~2023-03-07 | XR_ITS ---
EXAMINATION: XR lg joint inject/asp w image DATE: 03/07/2023 13:40 INDICATION: Left shoulder pain TECHNIQUE: A time-out was performed to verify the patient's name, date of , and procedure to b e performed. The procedure including the risks, benefits, and alternatives was discussed with the pat ient. Risks discussed included bleeding and infection. The patient understood the risks and agreed to proceed. The skin overlying the rotator cuff interval of the left glenohumeral joint was prepped an d draped in usual sterile fashion. Anesthetic was administered with 1% lidocaine subcutaneously. A 22 G needle was advanced under fluoroscopic guidance into the joint. Injection of 1 mL of Omnipaque 240 confirmed intra-articular position of the needle. Subsequently, injectate consisting of 7 mm a 5 :2 mixture of 1% lidocaine:10 mg/mL Kenalog for a total dosage of 20 mg Kenalog was instilled. [place] t of contrast was seen confirming intra-articular administration. The needle was removed and the entr y site was cleaned and dressed. There were no immediate complications. Fluoroscopy exposure time was 0.1 minutes. The total number of images was 2. FINDINGS: Real-time fluoroscopy demonstrates the needle in the left glenohumeral joint. Patient's radha n prior to procedure:02/15. Patient's pain following the procedure: 12/16. IMPRESSION: 1. Successful left glenohumeral joint injection of local anesthetic and steroid with decrease in the patient's presenting pain. Reviewed, dictated and finalized at location A.
== END 2023-03-07 12:56 | disposition home or self-care (01) ==
PROVIDERS: PCP Family Medicine; Visit Provider Nurse Practitioner
DX: M25.512 Pain in left shoulder (principal)
CPT/HCPCS: 20610; 77002; J3301; Q9966

== ENCOUNTER 2023-03-22 12:10 | Outpatient (CLI) | payer MEDICARE, SELFPAY | END 2023-03-22 12:11 | disposition home or self-care (01) | PROVIDERS: PCP Family Medicine; Visit Provider Physician Assistant | DX: M25.562 Pain in left knee (principal) | CPT/HCPCS: 73564 ==

== ENCOUNTER → 2023-04-02 12:28 | Outpatient (CLI) | payer MEDICARE, SELFPAY ==
--- NOTE | ~2023-04-02 | MM_ITS ---
EXAMINATION: MM screening carmine BI w victor m HISTORY: Screening mammogram TECHNIQUE: Craniocaudal and mediolateral oblique 3-D tomosynthesis images were obtained and synthetic 2-D images were generated. CAD analysis was submitted and interpreted. COMPARISON: 07/28/2021, 05/21/2020 bilateral screening mammogram examination since BREAST PARENCHYMAL COMPOSITION: The breasts are almost entirely fatty. FINDINGS: There is no evidence of suspicious mass, calcification, or architectural distortion to sugg est malignancy in either breast. There has been no suspicious interval change. IMPRESSION: 1. No mammographic evidence of malignancy. 2. Recommend routine screening mammography in one year. BI-RADS Category 1: Negative Reviewed, dictated and finalized at location A.
== END ==
PROVIDERS: PCP Family Medicine; Visit Provider Family Medicine
DX: Z12.31 Encounter for screening mammogram for malignant neoplasm of breast (principal)
CPT/HCPCS: 77063; 77067

== ENCOUNTER 2023-06-20 12:18 | Outpatient (CLI) | payer MEDICARE, SELFPAY ==
--- NOTE | ~2023-06-20 | XR_ITS ---
Left foot Technique: AP and lateral standing views were obtained. Clinical History: Polyarthritis Findings: No acute fracture or dislocation is seen. Osseous alignment is anatomic. Joint spaces are p reserved without erosive or degenerative change. Soft tissues are unremarkable. Impression: Unremarkable left foot radiographs. Reviewed, dictated and finalized at location . 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
--- NOTE | ~2023-06-20 | XR_ITS ---
EXAMINATION: XR hand BI arthritis min 3V DATE: 06/20/2023 13:04 INDICATION: Polyarticular osteoarthritis, unspecified. TECHNIQUE: 4 views of right hand and 4 views of left hand on a total of 7 radiographs were obtained. COMPARISON: Hand radiographs 08/15/2018 FINDINGS: RIGHT HAND: There is radial subluxation of first distal phalanx with respect to the proximal phalanx. No fracture. There is mild osteoarthritis of first carpometacarpal joint, second, third, and fifth p roximal interphalangeal joints, and fourth distal interphalangeal joint. There is moderate osteoarthr itis of third and fifth distal interphalangeal joints. There is severe osteoarthritis of first interp halangeal joint and second distal interphalangeal joint. There is degenerative cystic change in proxi mal ulnar aspect of lunate. LEFT HAND: Bone alignment is normal. No fracture. There is mild osteoarthritis of first carpometacarp al joint and third proximal and distal interphalangeal joints. There is severe osteoarthritis of firs t interphalangeal joint and moderate osteoarthritis of second distal interphalangeal joint. IMPRESSION: 1. Polyarticular osteoarthritis. Reviewed, dictated and finalized at location A. CTOR OF KNOWLEDGE MANAGEMENT
--- NOTE | ~2023-06-20 | XR_ITS ---
Right foot Technique: AP and lateral standing views were obtained. Clinical History: Polyarthritis Findings: No acute fracture or dislocation is seen. Osseous alignment is anatomic. Joint spaces are p reserved without erosive or degenerative change. Soft tissues are unremarkable. Impression: Unremarkable right foot radiographs. Reviewed, dictated and finalized at location . 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
--- NOTE | ~2023-06-20 | XR_ITS ---
Cervical Spine: AP, lateral, open-mouth views Clinical History: Pain COMPARISON: 07/26/2021 Findings: The normal lordotic curve is maintained. No fracture seen. Minimal grade 1 retrolisthesis o f C4 over C5 noted. There is mild to moderate degenerative disc change from C4 through C7. There is m ild facet arthropathy in the cervical spine. Pre-vertebral soft tissues are unremarkable. Impression: Mild degenerative spondylosis, as above. Reviewed, dictated and finalized at location M. STICKER Impression: Mild degenerative spondylosis, as above.
== END 2023-06-20 12:19 | disposition home or self-care (01) ==
PROVIDERS: PCP Family Medicine; Visit Provider Internal Medicine
DX: M06.09 Rheumatoid arthritis without rheumatoid factor, multiple sites (principal); M51.9 Unspecified thoracic, thoracolumbar and lumbosacral intervertebral disc disorder; M43.02 Spondylolysis, cervical region; M19.042 Primary osteoarthritis, left hand; M19.041 Primary osteoarthritis, right hand
CPT/HCPCS: 72040; 73130; 73620

== ENCOUNTER 2023-09-26 12:30 | Outpatient (RCR) | payer MEDICARE, SELFPAY ==
--- NOTE | 2023-08-21 11:59 | OPREHPOC ---
Outpatient Therapy Plan of Care This is a Multidisciplinary Plan of Care that may contain components documented by all disciplines (PT, OT, and ST.) PT Problem 1 PT Problem #1 Knowledge Deficit PT Goal 1 Goal 1* indep with HEP for water and land exercises PT Problem 2 PT Problem #2 Pain PT Goal 1 Goal 1* pt report generalized pain at worst of 7/10 2* pt report walking/standing tolerance with home activities of 2 & 1/2 hours PT Problem 3 PT Problem #3 Impaired Strength PT Goal 1 Goal increase strength of UE's and LE's to improve ability to do home tasks and self care: Standing shoulder flexion to 120' x 5 reps 1* R 2* L standing shoulder abduction to 95' x 5 reps 3* R 4* L mat strengthening exercises x 20 reps 5* R LE 6* L LE single leg standing x 10 seconds with good stability 7* R 8* L 9* 2 minute walking test distance of 390'
--- NOTE | 2023-08-21 11:59 | PTOPEVAL1 ---
Assessment and note entered by Donna Clements, PT Evaluation Information Assessment Status Evaluation Diagnosis chronic pain syndrome, fibromyalgia, Rheumatoid arthritis Onset October 2022 Subjective Information more pain since last October; Activity: live alone, doing all inside home and self care tasks; some yard work, but not cut grass no falls, but wobbly when walk; is not doing any exercises at home; Goal: less shoulder and arm pain; less pain in legs and walking better; get stronger in arms; Reported Pain Level Pain Score Self Report Additional Pain Score Comments pain range 7-10/10: generalize pain: R and L shoulders, back, arms, feet, everywhere activity: standing/walking with home activity reports tolerance about 2 hours, have to sit/rest breaks up her activities and takes longer to do things; decrease pain with heating pad; Assessment PT Clinical Summary Sarina has multiple diagnosis', areas of chronic pain-- back, shoulders, feet, legs; with medical history of RA, OA, fibromyalgia. She is under the care of pain management physician. She lives alone and is able to do everything for self and in home care, with more pain and decreased strength of her arms. With the evaluation: 2 minute walking test distance of 340'; weakness of her R and L LE and trunk; decreased shoulder flexion and abduction active ROM of flexion and abduction with pain; she is indep with supine/sit/stand transfers. Aquatic exercises would be beneficial to pt, for the buoyancy effects of the water to ease her mobility due to multiple areas of pain and a method for her to use for intermediate designer fitness activity. Skilled PT services are indicated for aquatic and land therapy treatments to increase strength and mobility skills, modalities PRN for pain control and education for HEP in water and on land. Plan of Care Interventions Aquatic Therapy,Electrical Stimulation,Hot Pack/ Cold
--- NOTE | 2023-09-06 12:40 | PCPTNOTE ---
Patient cancelled secondary to illness.
--- NOTE | 2023-09-11 13:50 | PCPTNOTE ---
Pts appt was canceled due to providers absence.
--- NOTE | 2023-09-26 13:24 | PTOPDC ---
Assessment and note entered by Donna Clements, PT Discharge Information Assessment Status Discharge Diagnosis chronic pain syndrome, fibromyalgia, Rheumatoid arthritis Onset October 2022 Subjective Information feel that therapy is helping some, but always going to have this pain; have been doing the exercises; like the water exercises--going to join a fitness center if can find one with a pool; Reported Pain Level Pain Score Self Report Additional Pain Score Comments L shoulder pain 6/10; pain range overall in the past week: 0-6/10; back bothering her more--going to chiropractor for it now; reported tolerance with standing/walking with home activities 2hours, then sit and rest 20 minutes and can do more; Assessment PT Clinical Summary Sarina has received 7 PT sessions. Two appointments were canceled. Compared to the initial evaluation: pain from 7- 10/10 to 0-6/10; reported activity level with standing/walking at home is the same at 2 hours; increase active ROM and strength of R and L shoulder flexion & abduction motions; increase LE strength with supine exercises; 2 minute walking test distance increased 340' to 375'; education completed for land and water HEP. The goals were partially achieved. Discharge PT services. She is to continue with her HEP. Plan of Care PT Services Indicated No
== END 2023-09-26 14:41 | disposition home or self-care (01) ==
LOC: ANHPT 12:30
PROVIDERS: PCP Family Medicine; Visit Provider Anesthesiology Pain Medicine
DX: M06.09 Rheumatoid arthritis without rheumatoid factor, multiple sites (principal); M79.7 Fibromyalgia; G89.4 Chronic pain syndrome
CPT/HCPCS: 97014; 97110; 97113; 97140; 97162; 97530; G0283

== ENCOUNTER 2024-06-02 14:13 | Outpatient (CLI) | payer MEDICARE, SELFPAY ==
--- NOTE | ~2024-06-02 | MM_ITS ---
EXAMINATION: MM screening carmine BI w vict[place] m HISTORY: Screening TECHNIQUE: Craniocaudal and mediolateral oblique 3-D tomosynthesis images were obtained and synthetic 2-D images were generated. CAD analysis was submitted and interpreted. COMPARISON: Comparison to multiple prior studies sequentially, with oldest reviewed study dated 11/15. BREAST PARENCHYMAL COMPOSITION: Not Dense: The breasts are almost entirely fatty. FINDINGS: There is no evidence of suspicious mass, calcification, or architectural distortion to sugg est malignancy in either breast. There has been no suspicious interval change. IMPRESSION: 1. No mammographic evidence of malignancy. 2. Recommend routine screening mammography in one year. BI-RADS Category 1: Negative Reviewed, dictated and finalized at location B. LED HELPER
--- NOTE | ~2024-06-02 | DEXA_ITS ---
Bone Density Report Name: ROZ MCKAY Age: 73 Sex: Female Ethnicity: White Date of : 1950 Indication: postmenopausal; screening for osteoporosis; height loss; hysterectomy; Referring Provider: MARY KIM Study: Bone densitometry was performed. Exam Date: June 02, 2024 Accession number: [id number] Bone Density: Region BMD T-score Z-score Classification AP Spine(L1-L4) 1.368 2.9 5.4 Normal Femoral Neck (Left) 0.986 1.2 3.4 Normal Total Hip (Left) 1.210 2.2 4.0 Normal Femoral Neck (Right) 1.095 2.2 4.3 Normal Total Hip (Right) 1.237 2.4 4.3 Normal Total Hip Mean 1.224 2.3 4.2 Normal World Health Organization criteria for BMD impression classify patients as: Normal (T-score at or above -1.0), Osteopenia (T-score between -1.0 and -2.5), or Osteoporosis (T-score at or below -2.5). 10-year Fracture Risk: FRAX not reported because: All T-scores for Spine Total, Hip Total, Femoral Neck at or above -1.0 Clinical Information Provided by Patient: Has the following medical conditions: Hysterectomy Patient maximum height was 67.0 No regular weight bearing exercise Drinks caffeinated beverages Onset of menses at age 14 Number of children 0 Impression: The patient has normal bone mass. Discussion: LOW RISK OF FRACTURE; BONE DENSITY IS WELL ABOVE THE MINIMUM DESIRABLE LEVEL AND ABOVE AVERAGE FOR AGE AND SEX AT ALL SKELETAL SITES TESTED. This person's bone density is above expected limits for age and sex. This is rarely clinically significant, but should be pursued if there are significant musculoskeletal complaints. The patient should follow a healthful lifestyle (good nutrition with adequate calcium and vitamin D, and appropriate weight-bearing exercise). Follow-Up: Consider repeating this study in 5 years or sooner if there is some new clinical indication. Reported by: GONZALO on 06/02/2024 2:51:00 PM. Reviewed, dictated and finalized at location ANannette HUERTAS
== END 2024-06-02 14:14 | disposition home or self-care (01) ==
LOC: ANHIMG 14:20
PROVIDERS: PCP Family Medicine; Visit Provider Family Medicine
DX: Z12.31 Encounter for screening mammogram for malignant neoplasm of breast (principal); Z78.0 Asymptomatic menopausal state
CPT/HCPCS: 77063; 77067; 77080

== ENCOUNTER 2024-08-26 09:37 | Outpatient (CLI) | payer MEDICARE, SELFPAY ==
--- NOTE | ~2024-08-26 | CT_ITS ---
EXAMINATION: CT chest abdomen pelvis w con DATE: 08/26/2024 10:02 INDICATION: Unintentional weight loss. Anorexia. TECHNIQUE: Computed tomography (CT) of the chest, abdomen, and pelvis was performed with 100 mL Omnip aque-350 intravenous contrast. Automated exposure control and iterative reconstruction technique were employed. The dose-length product was 1058.52 mGy-cm. COMPARISON: CT dated 02/02/2018 FINDINGS: CHEST CT: Mild atelectasis at the inferior right middle lobe. Small region of tree-in-bud opacity with multiple <4 mm nodules in the right upper lobe consistent with age-indeterminate infection with endobronchial spread of disease. Additional isolated 4 mm pulmonary nodule in the anterobasilar right lower lobe. No other suspicious pulmonary nodules, pulmonary edema or pleural effusion. Heart size is normal. Ath erosclerotic coronary artery calcific aeration and aortic valve calcific lesion. No pericardial effus ion. Thoracic aorta is normal in caliber with no dissection. No pathologically enlarged thoracic lymp hadenopathy. Moderate thoracic spondylosis. ABDOMEN/PELVIS CT: Mild intra and extra hepatic biliary ductal dilation likely related to prior cholecystectomy with sharon gical clips the gallbladder fossa. Liver is otherwise unremarkable. Spleen, pancreas, bilateral adren al glands and right kidney are normal. 1.1 cm left renal cyst. Small fat-containing umbilical hernia. There is moderate sigmoid and descending colon predominant diverticulosis without adjacent inflammat ory change to suggest diverticulitis. No bowel obstruction. The appendix is not visualized. No peric ecal inflammatory change to suggest acute appendicitis. Bladder is normal. The uterus is not identifi ed and has likely been surgically resected. There is calcified atherosclerosis of the aorta and many of the other arteries. No free intraperitoneal gas or fluid. No pathologically enlarged abdominal or pelvic lymphadenopathy. Severe spondylosis at L5-S1 with moderate spondylosis and more cephalad lumba r spine. IMPRESSION: 1. Mild emphysema with small region of tree-in-bud opacity in the right upper lobe most related to ag e-indeterminate infection. 2. Additional 4 mm right lower lobe pulmonary nodule. If the patient is low risk for lung cancer, no follow-up is needed. If the patient is high risk (i.e., history of smoking or asbestos or significant radiation exposure), optional follow-up chest CT could be considered at 12 months. 3. Diverticulosis. Reviewed, dictated and finalized at location A. [facility] [employer]ISH[employer] IMPRESSION: 1. Mild emphysema with small region of tree-in-bud opacity in the right upper l obe most related to age-indeterminate infection. 2. Additional 4 mm right lower lobe pulmonary nodule. If the patient is low ris k for lung cancer, no follow-up is needed. If the patient is high risk (i.e., h istory of smoking or asbestos or significant radiation exposure), optional foll ow-up chest CT could be considered at 12 months. 3. Diverticulosis.
--- OUTSIDE RECORDS SUMMARY | 2024-08-26 09:50 | XMS_ITS | Clinical Summary ---
Author Organization [facility] [place] Address [facility] [address] [place] [address] [address] [place] [address] Phone Care Team Providers Care Assistant Office Manager Name Role Phone Lonnie Reyes MD Primary Care Provider Allergies Active Allergy Reactions Criticality Noted Date Comments Piperacillin Sod-Tazobactam So Hives,Itching Medications oxybutynin (DITROPAN XL) 15 MG TABLET SR 24 HR TK 1 T PO QD 2 04/27/2016 Active losartan potassium-hydroc hlorothiazide (HYZAAR) 100-25 MG Tablet TK 1/2 T PO QD 0 02/21/2016 Active celecoxib (CELEBREX) 200 MG Capsule TK 1 C PO QD PRN 1 03/27/2016 Active levothyroxine (SYNTHROID) 88 MCG Tablet TK 1 T PO QD 1 04/10/2016 Active lansoprazole (PREVACID) 30 MG CAPSULE DELAYED RELEASE TK 1 C PO QD AC 0 04/10/2016 Active HYDROcodone-acet aminophen (NORCO) 7.5-325 MG Tablet TK 1 T PO Q 6 H PRN 0 04/18/2016 Active PREMARIN 0.625 MG/GM Cream 05/07/2016 Active Omeprazole 20 MG Tablet Delayed Response Take by mouth. Active dicyclomine (BENTYL) 20 MG Tablet Take 20 mg by mouth every 6 hours as needed. Active Cetirizine HCl (ZYRTEC ALLERGY PO) Take by mouth. Active aspirin EC 81 MG Tablet Delayed Response Take 81 mg by mouth daily. Active Family History Medical History Relation Name Comments Cancer Brother brain-bone Leukemia/Lymphoma Father Relation Name Status Comments Brother Father Social History Tobacco Use Types Packs/Day Years Used Date Smoking Tobacco: Former Cigarettes 2 35 Tobacco Cessation:Counseling Given: Yes Comments:quit 14 years ago Alcohol Use Standard Drinks/Week Comments No 0 (1 standard drink = 0.6 oz pur e alcohol) none Comments No Sex and Gender Information Value Date Recorded Sex Assigned at Not on file Legal Sex Female 5:38 PM CDT Gender Identity Not on file Sexual Orientation Not on file Last Filed Vital Signs Vital Sign Reading Time Taken Comments Blood Pressure 142/82 03/15/2017 12:59 PM CDT Pulse 81 03/15/2017 12:59 PM CDT Temperature 35.8 C (96.5 F) 03/15/2017 12:59 PM CDT Respiratory Rate 16 03/15/2017 12:59 PM CDT Oxygen Saturation 95% 03/15/2017 12:59 PM CDT Inhaled Oxygen Concentration - - Weight 89.6 kg (197 lb 9.6 oz) 03/15/2017 12:59 PM CDT Height 167.6 cm (5' 6 ) 03/15/2017 12:59 PM CDT Body Mass Index 31.89 03/15/2017 12:59 PM CDT Plan of Treatment Health Maintenance Due Date Last Done Comments DEXA Bone Density 1950 Hepatitis C Virus (HCV) Screening 1950 TdaP Immunization 1950 Colonoscopy 1993 Colorectal Cancer Screening 1993 Cologuard 1998 Immunochemical Fecal Occult Blood 1998 Pneumococcal Immunization (5 0+ years) (1 of 1 - PCV) 1998 Zoster Immunization (1 of 2) 1998 Respiratory Syncytial Virus (RSV) Immunization (Adult) (1 - 1-dose 75+ series) 2023 Influenza Immunization (#1) 2024 SARS-COV-2 Immunization ( - 2023- season) 2024 Hepatitis B Immunization Aged Out No longer eligible based on patient's age to complete this topic Meningococcal Immunization (ACWY) Aged Out No longer eligible based on patient's age to complete this topic Rotavirus Immunization Aged Out No lo nger eligible based on patient's age to complete this topic Insurance MEDICARE Member Subscriber Plan / Payer (Ef fective for All Dates) Name:Sarina Guzman Member ID:[id number] Relation to Subscriber:Self Name:ADITYA GUZMANON Patel Subscriber ID:[id number] Payer ID:[id number] Group ID:Not on file Type:Not on file Address: [facility] [address] [facility] [employer] [facility] [place] [address] Care Teams Assistant Office Manager Relationship Specialty Start Date End Date Lonnie Reyes MD [address] [place] [address] PCP - General Family Medicine 05/11/16
--- OUTSIDE RECORDS SUMMARY | 2024-08-26 09:50 | XMS_ITS | Patient Health Record ---
Author Organization [facility] Address [address] [place], [place] [id number] Care Team Providers Care Transition Specialist Name Role Phone KERRY ALCANTARA Unavailable [phone] Lonnie Reyes Unavailable Unavailable Allergies Allergen (clinical drug ingredient) Drug/Non Drug Allergy documented on EMR Reaction Allergy Type Onset Date Status piperacillin / tazobactam Zosyn Unknown Drug Allergy Active Reason For Referral No Information Medications Medication SIG (Take, Route, Fr equency, Duration) Notes Start Date End Date Status Pravastatin Sodium A ctive hydroCHLOROthiazide Active Duloxicaine Active amLODIPine Benzoate Active Omeprazole Active Pregabalin Active Levothyroxine Sodium Active Vital Signs Height-cm 167.64 cm 01/24/2024 Weight-kg 90.72 kg 01/24/2024 Height 66 in 01/24/2024 Weight 200 lbs 01/24/2024 BMI 32.28 kg/m2 01/24/2024 Encounters Encounter Location Date Provider Diagnosis [facility] [address] [place], [place] [id number] 01/24/2024 KERRY ALCANTARA Other specified rheumatoid arthritis, left ankle and foot M06.872 ; Other hereditary and idiopathic neuropathies G60.8 and Left foot pain M79.672 Assessments Encounter Date Diagnosis (ICD Code) Assessment Notes Treatment Notes Treatment Clinical Notes Section Notes 01/24/2024 Other hereditary and idiopathic neuropathies (ICD-10 - G60.8) 01/24/2024 Other specified rheumatoid arthritis, left ankle and foot (ICD-10 - M06.872) 01/24/2024 Left foot pain (ICD-10 - M79.672) 01/24/2024 Other Explained that pain was most likely from neuropathy. She should follow up with her veterinary technologist that is managing her fibromyalgia to discuss changing her medications. Plan Of Treatment No Information Insurance Providers Payer Name Payer Address Payer Phone Subscriber Number Group Number Insured Name Patient Relationship to Insured Coverage Start Date Coverage End Date [facility] [address] [address] [place] [address] [id number] Sarina Arias Self - patient is the insured Medical (General) History Medical History History ICD Code fibromyalgia neuropathy Arthritis rheumatoid arthritis Diabetic hypertension Surgical History Surgery Date(Month/Year) Hysterectomy Rotator Cuff Gall Bladder
--- OUTSIDE RECORDS SUMMARY | 2024-08-26 09:50 | XMS_ITS | Clinical Summary ---
Author Organization [facility] Address [address] [place] [address] Phone Care Team Providers Care Maintenance Plumber Name Role Phone Unavailable Primary Care Provider Unavailabl e Medications Medication Sig Dispensed Refills Start Date End Date Status lansoprazole (PREVACID) [address] capsule 1 tab/cap qday 03/21/2015 Acti ve metFORMIN (GLUCOPHAGE) 500 MG tablet 1 tab/cap bid 03/21/2015 Active darifenacin (ENABLEX) 15 MG 24 hr tablet 1 tab/cap qday 03/21/2015 Activ e losartan-hydroCHLOROthiaz jimmy (HYZAAR) 100-25 MG per tablet 1 tab/cap qday 03/21/2015 Active oxybutynin XL (DITROPAN-XL) 15 MG 24 hr tablet 1 tab/cap qday 03/21/2015 Active levothyroxine (SYNTHROID, LEVOTHROID) 88 MCG tablet 1 tab/cap qday 03/21/2015 Active Active Problems Problem Noted Date Diagnosed Date Acquired cyst of kidney 03/21/2015 Type 2 diabetes mellitus without complication Hypothyroidism 03/21/2015 Gastro-esophageal reflux disease without esophag itis 03/21/2015 Essential (primary) hypertension 03/21/2015 Primary generalized osteoarthritis 03/21/2015 Immunizations Name Administration Dates Next Due Influenza TIV (IM) 09/22/2015 Family History Medical History Relation Comments Kidney disease Neg Hx Kidney stone Neg Hx Social History Tobacco Use Types Packs/Day Years Used Date Smoking Tobacco: Never Assessed Sex and Gender Information Value Date Recorded Sex Assigned at Not on file Gender Identity Not on file Sexual Orientation Not on file Last Filed Vital Signs Vital Sign Reading Time Taken Comments Blood Pressure 130/78 09/22/2015 12:01 AM CDT Sitting, Right Pulse - - Temperature 36.9 C (98.4 F) 09/22/2015 12:01 AM CDT Respiratory Rate - - Oxygen Saturation - - Inhaled Oxygen Concentration - - Weight 88 kg (194 lb) 09/22/2015 12:01 AM CDT Height 167.6 cm (5' 6 ) 09/22/2015 12:0 1 AM CDT Body Mass Index 31.31 09/22/2015 12:01 AM CDT Plan of Treatment Not on file
--- OUTSIDE RECORDS SUMMARY | 2024-08-26 09:50 | XMS_ITS ---
Author Organization [facility] Address [address] [place], [place] [address] Care Team Providers Care Automatic Beam Warper Tender Name Role Phone KERRY BARTON Unavailable [phone] Lonnie Reyes Unavailable Unavailable Allergies Allergen (clinical drug ingredient) Drug/Non Drug Allergy documented on EMR Reaction Allergy Type Onset Date Status piperacillin / tazobactam Zosyn Unknown Drug Allergy Active REASON FOR VISIT arthritis in ft Medications Medication SIG (Take, Route, Fr equency, Duration) Notes Start Date End Date Status hydroCHLOROthiazide Active Duloxicaine Active amLODIPine Benzoate Active Pregabalin Active Levothyroxine Sodium Active Pravastatin Sodium A ctive Omeprazole Active Vital Signs Height 66 in 01/24/2024 Weight 200 lbs 01/24/2024 BMI 32.28 kg/m2 01/24/2024 Height-cm 167.64 cm 01/24/2024 Weight-kg 90.72 kg 01/24/2024 Encounters Encounter Location Date Provider Diagnosis [facility] [place] [address] [place], [place] [id number] 01/24/2024 KERRY BARTON Other specified rheumatoid arthritis, left ankle and foot M06.872 ; Other hereditary and idiopathic neuropathies G60.8 and Left foot pain M79.672 Assessments Encounter Date Diagnosis (ICD Code) Assessment Notes Treatment Notes Treatment Clinical Notes Section Notes 01/24/2024 Other specified rheumatoid arthritis, left ankle and foot (ICD-10 - M06.872) 01/24/2024 Other hereditary and idiopathic neuropathies (ICD-10 - G60.8) 01/24/2024 Left foot pain (ICD-10 - M79.672) 01/24/2024 Other Explained that pain was most likely from neuropathy. She should follow up with her automation qtp tester that is managing her fibromyalgia to discuss changing her medications. Plan Of Treatment Treatment Notes Assessment Notes Other Explained that pain was most likely from neuropathy. She should follow up with her automation qtp tester that is managing her fibromyalgia to discuss changing her medications. Progress Notes * Ester GUZMANOB: [birth year] (73 yo F)Acc No.[id number]:01/24/2024 Progress Notes Patient: Sarina JASON Provider: Vance Barton DPM :1950 A ge:73 Y S ex:Female Date:01/24/2024 Address:[address] [place], [place] [id number] Subjective: * Chief Complaints: * 1 . Arthritis in ft. * HPI: H PI: New Complaint P atient presents for a new patient consultation. Patient complains of an issue to her left foot and toes. She states her foot feels stiff and sore, and her toes are numb. Duration of problem is years, but it is getting worse. She thinks it might be arthristis. Patient denies any injury. MA: sea. * Medical History: F ibromyalgia, Neuropathy, Arthritis, Rheumatoid arthritis, Diabetic, Hypertension. * Surgical History: H ysterectomy , Rotator Cuff , Gall Bladder . * Family History: F ather: . M other: . * Medications: T aking Pregabalin , Taking Levothyroxine Sodium , Taking hydroCHLOROthiazide , Taking Duloxicaine , Taking amLODIPine Benzoate , Taking Omeprazole , Taking Pravastatin Sodium * Allergies: Z osyn. Objective: * Vitals: S hoe Size: 8.5, Wt:200lbs, Wt-k.72 kg, Ht: 66 in, Ht-cm: 167.64 cm, BMI:32.28Index, Body Surface Area: 2.05. * Examination: C onstitutional: Constitutional T he patient is awake, alert, well developed, well groomed and well nourished. . D ermatologic: Skin findings: S kin is warm, dry, supple with no breaks in the skin. . Nail pathology: N ails 1-5 bilateral are normal in appearance and thickness. No discoloration. . Ulcer: T here is no evidence of ulceration noted at this time . Hyperkeratotic Skin Lesion T here is no evidence of hyperkeratosis . M usculoskeletal: Muscle Strength M uscle strength is 5/5 in regards to dorsiflexion, plantarflexion, inversion, and eversion in bilateral lower extremities. . Foot Structure T he foot structure is noted to be normal bilaterally . Pain on palpation T here is no pain on palpation . Gait T here is normal gait noted . N eurologic: Muscle power: 5 /5 bilaterally . Gross sensation G ross sensation is intact to light touch. . V ascular: Dorsalis pedis pulse: 2 /4 bilateral . Posterior tibial pulse: 2 /4 bilaterally . Capillary refill: l ess than 3 seconds bilaterally . Temperature gradient: w ithin normal limits . ? X -Ray: LEFT FOOT T here is no evidence of fracture, dislocation, or other osseous lesions. . RIGHT FOOT T here is no evidence of fracture, dislocation, or other osseous lesions. . Assessment: * Assessment: 1. O ther specified rheumatoid arthritis, left ankle and foot - M06.872 (Primary) 2 . 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 L eft foot pain - M79.672 Plan: * Treatment: * Procedure Codes: 7 3630 X-RAY EXAM OF FOOT, Modifiers: LT * Billing Information: * Visit Code: 41407 Office Visit, New Pt., Level 3. * Procedure Codes: 45819 X-RAY EXAM OF FOOT. Modifiers: LT * Sign off status: Completed true * Provider: Vance Barton DPM Date: 01/24/2024 Generated for Elvis das/Svetlana/Fran on: 08/26/2024 09:49 AM CUSTOMER CARE AGENT History and Physical Notes * HPI (History of Present Illness) Category Sub-Category Detail Notes Category Not es HPI New Complaint Patient presents for a new patient consultation. Patient complains of an issue to her left foot and toes. She states her foot feels stiff and sore, and her toes are numb. Duration of problem is years, but it is getting worse. She thinks it might be arthristis. Patient denies any injury. MA: yajaira Examination Category Sub-Category Detail Notes Category Not es X-Ray LEFT FOOT There is no evid ence of fracture, dislocation, or other osseous lesions. RIGHT FOOT There is no evidence of fracture, dislocation, or other osseous lesions. Constitutional Constitutional The patient is a wake, alert, well developed, well groomed and well nourished. Dermatologic Skin findings: Skin is warm, dr y, supple with no breaks in the skin. Nail pathology: Nails 1-5 bilateral are normal in appearance and thickness. No discoloration. Ulcer: There is no evidence of ulceration noted at this time Hyperkeratotic Skin Lesion There is no e vidence of hyperkeratosis Musculoskeletal Muscle Strength Muscle strength is 5/5 in regards to dorsiflexion, plantarflexion, inversion, and eversion in bilateral lower extremities. Pain on palpation There is no pain on palpation Foot Structure The foot structure i s noted to be normal bilaterally Gait There is normal gait noted Neurologic Muscle power: 5/5 bilaterally Gross sensation Gross sensation is i ntact to light touch. Vascular Dorsalis pedis pulse: 2/4 bilateral Posterior tibial pulse: 2/4 bilaterally Capillary refill: less than 3 seconds bilaterally Temperature gradient: within normal limi ts
== END 2024-08-26 09:38 | disposition home or self-care (01) ==
PROVIDERS: PCP Family Medicine; Visit Provider Physician Assistant
DX: J43.9 Emphysema, unspecified (principal); R91.8 Other nonspecific abnormal finding of lung field; R91.1 Solitary pulmonary nodule; K57.90 Diverticulosis of intestine, part unspecified, without perforation or abscess without bleeding; D50.9 Iron deficiency anemia, unspecified; R63.0 Anorexia; R63.4 Abnormal weight loss; Z68.30 Body mass index [BMI] 30.0-30.9, adult; Z87.891 Personal history of nicotine dependence
CPT/HCPCS: 71260; 74177; Q9967

== ENCOUNTER 2024-09-22 00:08 | Day surgery (SDC) | payer MEDICARE, SELFPAY ==
[2024-09-09 13:56] VITALS: BMI 30.2
--- OUTSIDE RECORDS SUMMARY | 2024-09-22 00:11 | XMS_ITS | Patient Health Record ---
Author Organization [facility] Address [address] [place], [place] [address] Care Team Providers Care Passport Support Manager Name Role Phone KERRY ALCANTARA Unavailable [phone] Lonnie Reyes Unavailable Unavailable Allergies Allergen (clinical [...] Location Date Provider Diagnosis [facility] [address] [place], [place] [id number] 01/24/2024 KERRY ALCANTARA Other specified rheumatoid arthritis, [...] neuropathy. She should follow up with her processing associate that is managing her fibromyalgia to discuss changing her medications. Plan Of Treatment No Information Insurance Providers Payer Name Payer Address Payer Phone Subscriber Number Group Number Insured Name Patient Relationship to Insured Coverage Start Date Coverage End Date [facility] [address] [address] [place] [id number] Sarina Arias Self - patient is the insured Medical (General) History Medical History History ICD Code fibromyalgia neuropathy Arthritis rheumatoid arthritis Diabetic hypertension Surgical History Surgery Date(Month/Year) Hysterectomy Rotator Cuff Gall Bladder
--- OUTSIDE RECORDS SUMMARY | 2024-09-22 00:11 | XMS_ITS ---
Author Organization [facility] Address [address] [place], [place] [address] Care Team Providers Care Robotics Engineer Name Role Phone KERRY BARTON Unavailable [phone] Lonnie Reyes Unavailable Unavailable Allergies Allergen (clinical [...] Sodium A ctive Omeprazole Active Vital Signs Weight 200 lbs 01/24/2024 Weight-kg 90.72 kg 01/24/2024 Height 66 in 01/24/2024 Height-cm 167.64 cm 01/24/2024 BMI 32.28 kg/m2 01/24/2024 Encounters Encounter Location Date Provider Diagnosis [facility] [place] [address] [place], [place] [address] 01/24/2024 KERRY BARTON Other specified rheumatoid arthritis, [...] neuropathy. She should follow up with her race engine builder that is managing her fibromyalgia to discuss changing her medications. Plan Of Treatment Treatment Notes Assessment Notes Other Explained that pain was most likely from neuropathy. She should follow up with her race engine builder that is managing her fibromyalgia to discuss changing her medications. Progress Notes * Ester GUZMANOB: [birth year] (73 yo F)Acc No.[id number]:01/24/2024 Progress Notes Patient: Sarina JASON Provider: Vance Barton DPM :1950 A ge:73 Y S ex:Female Date:01/24/2024 Address:[address] [place], [place] [address] Subjective: * Chief Complaints: * 1 . [...] LT * Billing Information: * Visit Code: 35079 Office Visit, New Pt., Level 3. * Procedure Codes: 79495 X-RAY EXAM OF FOOT. Modifiers: LT * Sign off status: Completed true * Provider: Vance Barton DPM Date: 0 01/24/2024 Generated for Elvis das/Svetlana/Fran on: 0 09/22/2024 12:11 AM CDT History and Physical Notes * HPI (History [...]
--- OUTSIDE RECORDS SUMMARY | 2024-09-22 00:11 | XMS_ITS | Clinical Summary ---
Author Organization [facility] [place] Address [facility] [address] [place] [address] [address] [place] [address] Phone Care Team Providers Care Insurance Executive Name Role Phone Lonnie Reyes MD Primary [...] age to complete this topic Insurance MEDICARE Care Teams Insurance Executive Relationship Specialty Start Date End Date Lonnie Reyes MD [address] [place] [address] PCP - General Family Medicine 05/11/16
--- OUTSIDE RECORDS SUMMARY | 2024-09-22 00:11 | XMS_ITS | Clinical Summary ---
Author Organization [facility] Address [address] [place] [address] Phone Care Team Providers Care Twenty One Dealer Name Role Phone Unavailable Primary Care Provider [...]
[2024-09-22 09:48] VITALS: BP 172/74; PULSE 99; RESP 18; TEMP 36.7; O2SAT 96; BMI 28.0
[2024-09-22] MEDS: LACTATED RINGERS 1,000 ML 150 ML IV CONT (09:59)
[2024-09-22 10:02] LABS: Glucose Point of Care 112 mg/dl (65-105)
--- NOTE | 2024-09-22 10:03 | P.PNAN_ITS ---
Anes - Initial Pre Proc Eval Procedure: Operation Date: 09/22/24 11:15 Proposed Procedures p Esophagogastroduodenoscopy & Colonoscopy - Cesar Long MD Date/Time: 09/22/24 10:03 Surgeon: Cesar Long MD Pre Op Diagnosis: Noninfective gastro and colitis. Patient Data Age: 74 Gender: F Height: 1.68 m Weight: 79 kg Last Vital Signs Temp 36.7 C 09/22/24 09:48 Pulse 99 09/22/24 09:48 Resp 18 09/22/24 09:48 BP 172/74 H 09/22/24 09:48 Pulse Ox 96 09/22/24 09:48 O2 Del Method Room Air 09/22/24 09:48 Allergies Allergy/AdvReac Type Severity Reaction Status Date / Time piperacillin Allergy Unknown Rash Verified 09/22/24 09:46 tazobactam Allergy Unknown Rash Verified 09/22/24 09:46 trimethoprim Allergy Unknown Unknown Verified 09/22/24 09:46 Home Medications ?Medication ?Instructions ?Recorded ?Confirmed ?Type cetirizine 10 mg tablet (Zyrtec) 5 mg PO DAILY PRN Allergy Symptoms 07/17/19 09/22/24 History blood-glucose meter (Accu-Chek #1 ea 01/02/23 08/21/24 Rx Guide Glucose Meter) blood sugar diagnostic (Accu-Chek #100 ea 07/03/23 08/21/24 Rx Guide test strips) leflunomide 20 mg tablet 20 mg PO DAILY #90 tabs 12/04/23 09/22/24 Rx duloxetine 60 mg capsule,delayed See Rx Instructions .Route 02/11/24 09/22/24 Rx release .COMPLEX #180 caps tramadol 50 mg tablet 50 mg PO Q12H PRN pain #60 tabs 05/27/24 09/09/24 Rx amlodipine 5 mg tablet 5 mg PO DAILY #90 tabs 05/28/24 09/22/24 Rx hydrochlorothiazide 25 mg tablet 12.5 mg (1/2 x 25 mg) PO DAILY #45 07/15/24 09/22/24 Rx tabs pravastatin 20 mg tablet 20 mg PO DAILY #90 tabs 07/15/24 09/22/24 Rx pregabalin 100 mg capsule 100 mg PO BID #60 caps 08/01/24 09/22/24 Rx ferrous sulfate 325 mg (65 mg 650 mg (2 x 325 mg (65 mg iron)) 08/06/24 09/22/24 Rx iron) tablet PO .every other day #90 tabs diclofenac sodium 100 mg 100 mg PO DAILY #90 tabs 08/11/24 09/22/24 Rx tablet,extended release 24 hr omeprazole 40 mg capsule,delayed 40 mg PO DAILY #90 caps 08/11/24 09/22/24 Rx release levothyroxine 125 mcg tablet 125 mcg PO DAILY #90 tabs 08/21/24 09/22/24 Rx upadacitinib 15 mg tablet,extended 15 mg PO DAILY 08/21/24 09/22/24 History release 24 hr (Rinvoq) azithromycin 250 mg tablet See Rx Instructions PO .COMPLEX #6 08/28/24 09/09/24 Rx tabs benzonatate 100 mg capsule 100 - 200 mg (1 - 2 x 100 mg) PO 08/28/24 09/09/24 Rx TID PRN cough #60 caps lancets (Accu-Chek Fastclix Lancet #102 ea 09/01/24 Rx Drum) conjugated estrogens 0.625 mg/gram 0.625 mg vaginal EVERY OTHER DAY 09/09/24 09/22/24 History vaginal cream (Premarin) losartan 100 mg tablet See Rx Instructions .Route 09/13/24 09/22/24 Rx .COMPLEX #90 tabs Laboratory Tests 09/22/24 09:59 POC Capillary Glucose 112 H mg/dl (65-105) Patient hx anesthesia problems: none Family hx anesthesia problems: none Results Review: All pre-operative results and documents have been reviewed as part of the pre- operative evaluation. 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 Hypothyroid Acute rhinosinusitis Dysuria Type 2 diabetes mellitus with chronic kidney disease CKD (chronic kidney disease), stage III Kj hy kid w cr kid I-IV Seronegative rheumatoid arthritis of both hands Arthritis Depression Diabetes Irritable bowel disease Thyroid disease Surgical History Surgical History H/O repair of rotator cuff H/O: hysterectomy Hx of cholecystectomy Family History Family History Grandparent Diabetes mellitus Family history of cardiovascular disease Sibling Family history of malignant neoplasm Mother Family history of Parkinson's disease Father Family history of Hodgkin's lymphoma Other Family history of arthritis Social History Social History Social History: Smoking status: Former smoker Tobacco type: cigarettes Smoking end date: 07/09/03 Alcohol intake: never Substance use: never Substance use type: does not use Do You Feel Safe in your Home?: Yes Lack of Transportation: No Lack of Food: Never True Current Housing: I Have Housing Concerned About Future Housing: No Difficulty Paying Gas/Electric Bills: No Difficulty Paying for Meds: No Currently Unemployed: Decline to Answer Education: High School Diploma/GED Difficulty w/ Childcare or Family Care: No Living arrangements: alone Occupation/Education: retired Gender identity (if verbalized by the patient): Female Sexual Orientation (if Verbalized by the Patient): Straight or Heterosexual Spiritual care concerns: No Anes - Eval Final PreProcedure Day of Procedure 09/22/24 10:03 Patient weight: overweight Heart: regular rate and rhythm Lungs: clear to auscultation Airway: Mallampati scale class II Neurological: alert and oriented Last oral intake: >/= 8 hours ASA classification: III Emergent: no Anesthetic plan: proceed Anesthesia type and monitoring: general GIVS and standard monitoring Results Review: All pre-operative results and documents have been reviewed as part of the pre- operative evaluation. Informed Consent: The patient's anesthetic plan and its attendant risks and benefits were discussed with the patient/family/POA. Questions were solicited and answers provided to the satisfaction of the patient/family/POA.
--- NOTE | 2024-09-22 10:12 | PM.IMHP ---
H&P: HPI History of Present Illness Date/Time: 09/22/24 10:12 Chief Complaint: Iron deficiency anemia -weight loss-chronic diarrhea Narrative: this patient has lost about 40 lb in Approximately 6 months. in addition, she was found to have iron deficiency anemia with an iron saturation of 6%. She has been experiencing chronic diarrhea. For those reasons, she is referred for EGD and colonoscopy. Review of Systems Review of Systems: All systems reviewed & are unremarkable except as noted in HPI and below PMFSH Past Medical History Medical History Unintentional weight loss Seronegative rheumatoid arthritis of multiple sites Postablative hypothyroidism Hypothyroid Acute rhinosinusitis Dysuria Type 2 diabetes mellitus with chronic kidney disease CKD (chronic kidney disease), stage III Kj hy kid w cr kid I-IV Seronegative rheumatoid arthritis of both hands Arthritis Depression Diabetes Irritable bowel disease Thyroid disease Surgical History Surgical History H/O repair of rotator cuff H/O: hysterectomy Hx of cholecystectomy Family History Family History Grandparent Diabetes mellitus Family history of cardiovascular disease Sibling Family history of malignant neoplasm Mother Family history of Parkinson's disease Father Family history of Hodgkin's lymphoma Other Family history of arthritis Social History Social History Social History: Smoking status: Former smoker Tobacco type: cigarettes Smoking end date: 07/09/03 Alcohol intake: never Substance use: never Substance use type: does not use Do You Feel Safe in your Home?: Yes Lack of Transportation: No Lack of Food: Never True Current Housing: I Have Housing Concerned About Future Housing: No Difficulty Paying Gas/Electric Bills: No Difficulty Paying for Meds: No Currently Unemployed: Decline to Answer Education: High School Diploma/GED Difficulty w/ Childcare or Family Care: No Living arrangements: alone Occupation/Education: retired Gender identity (if verbalized by the patient): Female Sexual Orientation (if Verbalized by the Patient): Straight or Heterosexual Spiritual care concerns: No Meds Home Medications and Allergies Home Medications ?Medication ?Instructions ?Recorded ?Confirmed ?Type cetirizine 10 mg tablet (Zyrtec) 5 mg PO DAILY PRN Allergy Symptoms 07/17/19 09/22/24 History blood-glucose meter (Accu-Chek #1 ea 01/02/23 08/21/24 Rx Guide Glucose Meter) blood sugar diagnostic (Accu-Chek #100 ea 07/03/23 08/21/24 Rx Guide test strips) leflunomide 20 mg tablet 20 mg PO DAILY #90 tabs 12/04/23 09/22/24 Rx duloxetine 60 mg capsule,delayed See Rx Instructions .Route 02/11/24 09/22/24 Rx release .COMPLEX #180 caps tramadol 50 mg tablet 50 mg PO Q12H PRN pain #60 tabs 05/27/24 09/09/24 Rx amlodipine 5 mg tablet 5 mg PO DAILY #90 tabs 05/28/24 09/22/24 Rx hydrochlorothiazide 25 mg tablet 12.5 mg (1/2 x 25 mg) PO DAILY #45 07/15/24 09/22/24 Rx tabs pravastatin 20 mg tablet 20 mg PO DAILY #90 tabs 07/15/24 09/22/24 Rx pregabalin 100 mg capsule 100 mg PO BID #60 caps 08/01/24 09/22/24 Rx ferrous sulfate 325 mg (65 mg 650 mg (2 x 325 mg (65 mg iron)) 08/06/24 09/22/24 Rx iron) tablet PO .every other day #90 tabs diclofenac sodium 100 mg 100 mg PO DAILY #90 tabs 08/11/24 09/22/24 Rx tablet,extended release 24 hr omeprazole 40 mg capsule,delayed 40 mg PO DAILY #90 caps 08/11/24 09/22/24 Rx release levothyroxine 125 mcg tablet 125 mcg PO DAILY #90 tabs 08/21/24 09/22/24 Rx upadacitinib 15 mg tablet,extended 15 mg PO DAILY 08/21/24 09/22/24 History release 24 hr (Rinvoq) azithromycin 250 mg tablet See Rx Instructions PO .COMPLEX #6 08/28/24 09/09/24 Rx tabs benzonatate 100 mg capsule 100 - 200 mg (1 - 2 x 100 mg) PO 08/28/24 09/09/24 Rx TID PRN cough #60 caps lancets (Accu-Chek Fastclix Lancet #102 ea 09/01/24 Rx Drum) conjugated estrogens 0.625 mg/gram 0.625 mg vaginal EVERY OTHER DAY 09/09/24 09/22/24 History vaginal cream (Premarin) losartan 100 mg tablet See Rx Instructions .Route 09/13/24 09/22/24 Rx .COMPLEX #90 tabs Allergies Allergy/AdvReac Type Severity Reaction Status Date / Time piperacillin Allergy Unknown Rash Verified 09/22/24 09:46 tazobactam Allergy Unknown Rash Verified 09/22/24 09:46 trimethoprim Allergy Unknown Unknown Verified 09/22/24 09:46 Vital Signs Vital Signs - 24 hr 09/22/24 09:48 Temperature 98.0 F Pulse Rate 99 Respiratory Rate 18 Blood Pressure 172/74 H Pulse Oximetry 96 Oxygen Delivery Room Air Exam Const: General: cooperative and healthy appearing Resp: Effort & Inspection: normal respiratory effort and able to speak in complete sentences Auscultation: clear to auscultation bilaterally Cardio: Rate: regular rate Rhythm: regular rhythm GI: Inspection: normal to inspection GI Palp: No No hepatosplenomegaly present Auscultation: normal bowel sounds Rectal Exam: deferred Skin: General skin exam: normal color Psych: Appearance: grossly normal Mental Status: mental status grossly normal Assessment and Plan Assessment and plan (1) Unintentional weight loss: Code(s): R63.4 - Abnormal weight loss Status: Acute Assessment and Plan: The patient is deemed a good candidate for the procedures. Consent signed. Will proceed. (2) Iron deficiency anemia: Code(s): D50.9 - Iron deficiency anemia, unspecified Status: Acute
--- NOTE | 2024-09-22 10:22 | SUR.OPER ---
EGD [id number]. Colonoscopy start time 1026.
[2024-09-22 10:44] VITALS: BP 147/73; PULSE 82; RESP 18; O2SAT 99
[2024-09-22 10:54] VITALS: BP 153/70; PULSE 78; RESP 18; O2SAT 98
[2024-09-22 11:04] VITALS: BP 172/83; PULSE 76; RESP 18; O2SAT 98
== END 2024-09-22 11:21 | disposition home or self-care (01) ==
PROVIDERS: PCP Family Medicine; Referring Provider Family Medicine; Visit Provider Internal Medicine Gastroenterology
PROC: 0DJ08ZZ Inspection of Upper Intestinal Tract, Via Natural or Artificial Opening Endoscopic (ICD-10-PCS; CPT 45378; principal; 2024-09-22 11:15)
DX: K57.30 Diverticulosis of large intestine without perforation or abscess without bleeding (principal); K29.30 Chronic superficial gastritis without bleeding; K31.89 Other diseases of stomach and duodenum; K21.9 Gastro-esophageal reflux disease without esophagitis; D50.9 Iron deficiency anemia, unspecified; E03.9 Hypothyroidism, unspecified; E11.22 Type 2 diabetes mellitus with diabetic chronic kidney disease; N18.30 Chronic kidney disease, stage 3 unspecified; M06.09 Rheumatoid arthritis without rheumatoid factor, multiple sites; M06.042 Rheumatoid arthritis without rheumatoid factor, left hand; M06.041 Rheumatoid arthritis without rheumatoid factor, right hand; F32.A Depression, unspecified; K58.9 Irritable bowel syndrome, unspecified; Z79.891 Long term (current) use of opiate analgesic; Z98.890 Other specified postprocedural states; Z90.49 Acquired absence of other specified parts of digestive tract; Z87.891 Personal history of nicotine dependence; Z80.7 Family history of other malignant neoplasms of lymphoid, hematopoietic and related tissues; Z82.49 Family history of ischemic heart disease and other diseases of the circulatory system
CPT/HCPCS: 43239; 45380; 82948; 88305; J2704; J7120

== ENCOUNTER 2024-10-16 05:33 | Outpatient (CLI) | payer MEDICARE, SELFPAY ==
--- OUTSIDE RECORDS SUMMARY | 2024-10-16 05:36 | XMS_ITS | Patient Health Record ---
Author Organization [facility] Address [address] [place], [place] [id number] Care Team Providers Care Dial Marker Name Role Phone KERRY ALCANTARA Unavailable [phone] Lonnie Reyes Unavailable Unavailable Allergies Allergen (clinical drug ingredient) Drug/Non Drug Allergy documented on EMR Reaction Allergy Type Onset Date Status piperacillin / tazobactam Zosyn Unknown Drug Allergy Active Reason For Referral No Information Medications Medication SIG (Take, Route, Fr equency, Duration) Notes Start Date End Date Status Pregabalin Active Levothyroxine Sodium Active hydroCHLOROthiazide Active Duloxicaine Active amLODIPine Benzoate Active Omeprazole Active Pravastatin Sodium A ctive Vital Signs Height-cm 167.64 cm 01/24/2024 Weight-kg 90.72 kg 01/24/2024 Height 66 in 01/24/2024 Weight 200 lbs 01/24/2024 BMI 32.28 kg/m2 01/24/2024 Encounters Encounter Location Date Provider Diagnosis [facility] [address] [place], [place] [id number] 01/24/2024 KERRY ALCANTARA Other specified rheumatoid arthritis, [...] neuropathy. She should follow up with her telephone collector that is managing her fibromyalgia to discuss changing her medications. Plan Of Treatment No Information Insurance Providers Payer Name Payer Address Payer Phone Subscriber Number Group Number Insured Name Patient Relationship to Insured Coverage Start Date Coverage End Date [facility] [address] [address] [place] [address] [id number] Sarina Arias Self - patient is the insured Medical (General) History Medical History History ICD Code fibromyalgia neuropathy Arthritis rheumatoid arthritis Diabetic hypertension Surgical History Surgery Date(Month/Year) Hysterectomy Rotator Cuff Gall Bladder
--- OUTSIDE RECORDS SUMMARY | 2024-10-16 05:36 | XMS_ITS ---
Author Organization [facility] Address [address] [place], [place] [id number] Care Team Providers Care Manager Banquet Name Role Phone KERRY BARTON Unavailable [phone] Lonnie Reyes Unavailable Unavailable Allergies Allergen (clinical drug ingredient) Drug/Non Drug Allergy documented on EMR Reaction Allergy Type Onset Date Status piperacillin / tazobactam Zosyn Unknown Drug Allergy Active REASON FOR VISIT arthritis in ft Medications Medication SIG (Take, Route, Fr equency, Duration) Notes Start Date End Date Status Pregabalin Active Duloxicaine Active amLODIPine Benzoate Active Omeprazole Active Pravastatin Sodium A ctive Levothyroxine Sodium Active hydroCHLOROthiazide Active Vital Signs Height 66 in 01/24/2024 Weight 200 lbs 01/24/2024 BMI 32.28 kg/m2 01/24/2024 Height-cm 167.64 cm 01/24/2024 Weight-kg 90.72 kg 01/24/2024 Encounters Encounter Location Date Provider Diagnosis [facility] [address] [place], [place] [id number] 01/24/2024 KERRY BARTON Other specified rheumatoid arthritis, [...] neuropathy. She should follow up with her political science professor that is managing her fibromyalgia to discuss changing her medications. Plan Of Treatment Treatment Notes Assessment Notes Other Explained that pain was most likely from neuropathy. She should follow up with her political science professor that is managing her fibromyalgia to discuss changing her medications. Progress Notes * Ester GUZMANOB: [birth year] (74 yo F)Acc No.[id number]:01/24/2024 Progress Notes Patient: Sarina JASON Provider: Vance Barton DPM :1950 A ge:73 Y S ex:Female Date:01/24/2024 Address:[address] [place], [place] [id number] Subjective: * Chief Complaints: * A rthritis in ft * HPI: H PI: New Complaint P atient presents for a new patient consultation. Patient complains of an issue to her left foot and toes. She states her foot feels stiff and sore, and her toes are numb. Duration of problem is years, but it is getting worse. She thinks it might be arthristis. Patient denies any injury. MA: yajaira. * Medical History: * Surgical History: H ysterectomy Rotator Cuff Gall Bladder * Hospitalization/Major Diagno stic Procedure: * Family History: F ather: . M other: . * Medications: T akingPregabalin Levothyroxine Sodium hydroCHLOROthiazide Duloxicaine amLODIPine Benzoate Omeprazole Pravastatin Sodium Medication List reviewed and reconciled with the patientTaking Pregabalin Taking Levothyroxine Sodium Taking hydroCHLOROthiazide Taking Duloxicaine Taking amLODIPine Benzoate Taking Omeprazole Taking Pravastatin Sodium Medication List reviewed and reconciled with the patient * Allergies: Z osyn Objective: * Vitals: S hoe Size: 8.5, [...] left ankle and foot - M06.872 (Primary) ?2. 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 L eft foot pain - M79.672 Plan: * Treatment: * Procedure Codes: 7 3630 X-RAY EXAM OF FOOT, Modifiers: LT * Billing Information: * Visit Code: 87844 Office Visit, New Pt., Level 3. * Procedure Codes: 68382 X-RAY EXAM OF FOOT. Modifiers: LT * Sign off status: Completed true * Provider: Vance Barton DPM Date: 0 01/24/2024 Generated for Elvis das/Svetlana/Fran on: 0 10/16/2024 05:36 AM CDT History and Physical Notes * [...] be arthristis. Patient denies any injury. MA: sea Examination Category Sub-Category Detail Notes Category Not [...]
--- OUTSIDE RECORDS SUMMARY | 2024-10-16 05:36 | XMS_ITS | Clinical Summary ---
Author Organization [facility] [place] Address PHYSICIAN [facility] [address] [place] [address] [address] [place] [address] Phone Care Team Providers Care Prop Maker Name Role Phone Lonnie Reyes MD Primary [...] complete this topic Insurance MEDICARE Care Teams Prop Maker Relationship Specialty Start Date End Date Lonnie Reyes MD [address] [place] [address] PCP - General Family Medicine 05/11/16
--- OUTSIDE RECORDS SUMMARY | 2024-10-16 05:36 | XMS_ITS | Clinical Summary ---
Author Organization [facility] Address [address] [place] [address] Phone Care Team Providers Care Batch Freezer Operator Name Role Phone Unavailable Primary Care Provider Unavailabl e Medications lansoprazole (PREVACID) [address] capsule 1 tab/cap qday 03/21/2015 Active metFORMIN (GLUCOPHAGE) 500 MG tablet 1 tab/cap bid 03/21/2015 Active darifenacin (ENABLEX) 15 MG 24 hr tablet 1 tab/cap qday 03/21/2015 Active losartan-hydroCH LOROthiazide (HYZAAR) 100-25 MG per tablet 1 tab/cap [...] hypertension 03/21/2015 Primary generalized osteoarthritis 03/21/2015 Immunizations Immunization Administration Dates Next Due Influenza TIV (IM) 09/22/2015 Family History Medical History Relation Comments Kidney disease Neg Hx Kidney stone Neg Hx Social History Tobacco Use Types Packs/Day Years Used Date Smoking Tobacco: Never Assessed Comments Unknown Sex and Gender Information Value Date Recorded Sex Assigned at Not on file Legal Sex Female 9:36 AM MST Gender Identity Not on file Sexual Orientation [...]
--- NOTE | 2024-10-16 06:45 | SUR.OPER ---
Patient brought to GI Lab. Instructions for patient undergoing Capsule Endoscopy reviewed with patient. Consent form signed. Sensor array applied to patient's abdomen and connected to recorded. Patient swallowed capsule with 12 ozs of water infused with Simethicone. Patient instructed they may have clear liquids at 0815 this AM and eat or drink at 1015 this AM. Patient instructed to return to GI Lab at 1500 this afternoon for removal of recording device and to call [phone] or to return to the hospital if any nausea and vomiting or abdominal pain is experienced. Pt states no questions at this time.
--- NOTE | 2024-10-16 14:44 | SUR.PREOP ---
Patient returned to the GI Lab at 1430 for recorder box removal. Patient voiced no complaints. States they have understanding of instructions. Patient left ambulatory.
== END 2024-10-16 05:34 | disposition home or self-care (01) ==
PROVIDERS: PCP Family Medicine; Referring Provider Internal Medicine Gastroenterology; Visit Provider Internal Medicine Gastroenterology
PROC: 0DJ07ZZ Inspection of Upper Intestinal Tract, Via Natural or Artificial Opening (ICD-10-PCS; CPT 91110; principal; 2024-10-16 07:00)
DX: Z01.818 Encounter for other preprocedural examination (principal); D50.9 Iron deficiency anemia, unspecified
CPT/HCPCS: 91110

== ENCOUNTER 2025-02-04 11:42 | Emergency (ER) | payer MEDICARE, SELFPAY ==
--- NOTE | ~2025-02-04 | XR_ITS ---
EXAMINATION: XR lumbar spine 2-3V DATE: 02/04/2025 13:17 INDICATION: Fall TECHNIQUE: Anteroposterior and lateral views of the lumbar spine, and cone-down lateral view of the l umbosacral junction were obtained. COMPARISON: None. FINDINGS: 7 degrees lumbar levocurvature. Sagittal alignment is normal. Vertebral body heights are normal. No e vident fracture. Severe disc height loss at L5-S1, mild to moderate disc height loss at L4-L5 and mil d disc height loss at L1-L2 through L3-L4 facet T10-T11 and T11-T12. Posterior endplate osteophytes c ontribute to mild to potentially moderate central canal stenosis at L2-L3 and mild central canal sten osis at L4-L5 and L5-S1. Moderate to severe facet osteoarthritis in the mid to lower lumbar spine. Mi ld to moderate bilateral sacroiliac osteoarthritis. Posterior sulci of the lungs are clear with no pl eural effusion. Atherosclerotic calcification along the abdominal aorta and bilateral iliac arteries. IMPRESSION: 1. 7 degrees lumbar levocurvature with severe lumbosacral and mild to moderate lumbar spondylosis. Reviewed, dictated and finalized at location A.
--- NOTE | ~2025-02-04 | CT_ITS ---
EXAMINATION: CT cervical spine wo con DATE: 02/04/2025 13:00 INDICATION: Fall TECHNIQUE: Computed tomography (CT) of the cervical spine was performed without intravenous contrast. Automated exposure control and iterative reconstruction technique were employed. The dose-length pro duct was 473.42 mGy-cm. COMPARISON: None FINDINGS: 10 degrees cervical dextrocurvature. Sagittal alignment is normal. Vertebral body heights are normal. No fracture. Moderate osteoarthritis at the atlantoaxial articulation. Moderate disc height loss wit h prominent posterior disc osteophyte complexes contributing to moderate central canal stenosis at C4 -C5, mild to moderate central canal stenosis C5-C6 and mild central canal stenosis at C6-C7. Addition al mild disc height loss at C2-C3, C3-C4 and C7-T1 with disc bulge contributing to additional mild ce ntral canal stenosis at C3-C4. Severe bilateral uncovertebral osteoarthritis at C4-C5 through C6-C7. Mild to moderate uncovertebral osteoarthritis and remainder of the cervical spine. There is also mult ilevel cervical facet osteoarthritis, severe bilaterally at C7-T1 and mild to moderate in the more ce phalad cervical spine. There is moderate bilateral neural foraminal stenosis at C4-C5 and C5-C6 and o n the left at C6-C7. Minimal to mild neural foraminal stenosis throughout the remainder of the cervic al spine. Small of atherosclerotic calcification at the bilateral carotid bulbs. Cervical soft tissue s are otherwise unremarkable. The psoas apices of lungs are clear. IMPRESSION: 1. No acute osseous abnormality. 2. Moderate cervical spondylosis with moderate central canal stenosis at C4-C5 and mild to moderate s tenosis at C5-C6. Reviewed, dictated and finalized at location A. IMPRESSION: 1. No acute osseous abnormality. 2. Moderate cervical spondylosis with moderate central canal stenosis at C4-C5 and mild to moderate stenosis at C5-C6.
--- NOTE | ~2025-02-04 | CT_ITS ---
EXAMINATION: CT brain wo con DATE: 02/04/2025 13:00 INDICATION: Fall TECHNIQUE: Computed tomography (CT) of the head was performed without intravenous contrast. Sagittal and coronal reconstructions were performed. The mA was adjusted according to patient size. Iterative reconstruction technique was employed. The dose-length product was 605.33 mGy-cm. COMPARISON: None FINDINGS: No fracture. No acute intracranial hemorrhage, acute infarction or abnormal extra axial fluid collect ion. Mild scattered periventricular predominant nonspecific white matter hypoattenuation consistent with c hronic small vessel ischemic disease. Ventricles are normal and symmetric. No mass/mass effect. Kelly es of intraocular lens replacement. The orbits and mastoid air cells are normal. There is complete op acification of the left sphenoid sinus which appears expanded with subtle minimally bulging contours to the dean of the sinus suspicious for mucocele formation. There is some subtle internal calcificat ion which can be seen with chronic fungal sinusitis. IMPRESSION: 1. Normal aging brain with no fracture or acute intracranial process. 2. 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 Reviewed, dictated and finalized at location A. IMPRESSION: 1. Normal aging brain with no fracture or acute intracranial process. 2. 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
[2025-02-04 11:47] VITALS: BP 156/69; PULSE 86; RESP 16; TEMP 36.4; O2SAT 97
--- OUTSIDE RECORDS SUMMARY | 2025-02-04 11:59 | XMS_ITS | Clinical Summary ---
Author Organization [facility] Address [address] [place] [address] Phone Care Team Providers Care Zoo Director Name Role Phone Unavailable Primary Care Provider [...] 12:01 AM CDT Height 167.6 cm (5' 6) 09/22/2015 12:0 1 AM CDT Body Mass Index 31.31 09/22/2015 12:01 AM CDT Plan of Treatment Not on file
--- OUTSIDE RECORDS SUMMARY | 2025-02-04 11:59 | XMS_ITS | Patient Health Record ---
Author Organization [facility] Address [address] [place], [place] [id number] Care Team Providers Care Rand Butter Name Role Phone KERRY ALCANTARA Unavailable [phone] Lonnie Reyes Unavailable Unavailable Allergies Allergen (clinical [...] Active Omeprazole Active Pravastatin Sodium A ctive Plan Of Treatment No Information Insurance Providers Payer Name Payer Address Payer Phone Subscriber Number Group Number Insured Name Patient Relationship to Insured Coverage Start Date Coverage End Date [facility] [address] [address] [place] [id number] Sarina Arias Self - patient is the insured Medical (General) History Medical History History ICD Code fibromyalgia neuropathy Arthritis rheumatoid arthritis Diabetic hypertension Surgical History Surgery Date(Month/Year) Hysterectomy Rotator Cuff Gall Bladder
--- OUTSIDE RECORDS SUMMARY | 2025-02-04 11:59 | XMS_ITS | Clinical Summary ---
Author Organization [facility] [place] Address PHYSICIAN [facility] [address] [place] [address] [address] [place] [address] Phone Care Team Providers Care Mechanical Reliability Engineer Name Role Phone Lonnie Reyes MD Primary [...] 12:59 PM CDT Height 167.6 cm (5' 6) 03/15/2017 12:59 PM CDT Body Mass Index 31.89 03/15/2017 12:59 PM CDT Plan of Treatment Health Maintenance Due Date Last Done Comments Hepatitis C Virus (HCV) Screening 1950 TdaP Immunization 1950 Pneumococcal Immunization (5 0+ years) (1 of 1 - PCV) 1998 Zoster Immunization (1 of 2) 1998 Respiratory Syncytial Virus (RSV) Immunization (Adult) (1 - 1-dose 75+ series) 2023 SARS-COV-2 Immunization ( - 2023- season) 2024 Influenza Immunization (#1) 2025 Hepatitis B Immunization Aged Out No longer eligible based on patient's age to complete this topic Human Papillomavirus (HPV) Immunization Aged Out No longer eligible b ased on patient's age to complete this topic Meningococcal Immunization (ACWY) Aged Out No longer eligible based on patient's age to complete this topic Rotavirus Immunization Aged Out No lo nger eligible based on patient's age to complete this topic Insurance MEDICARE Care Teams Mechanical Reliability Engineer Relationship Specialty Start Date End Date Lonnie Reyes MD [address] [place] [address] PCP - General Family Medicine 05/11/16
[2025-02-04 12:39] VITALS: BP 159/67; PULSE 82; RESP 18; TEMP 36.9; O2SAT 96
--- OUTSIDE RECORDS SUMMARY | 2025-02-04 13:31 | XMS_ITS | Clinical Summary ---
Author Organization [facility] [place] Address PHYSICIAN [facility] [address] [place] [address] [address] [place] [address] Phone Care Team Providers Care Credit Checker Name Role Phone Lonnie Reyes MD Primary [...] complete this topic Insurance MEDICARE Care Teams Credit Checker Relationship Specialty Start Date End Date Lonnie Reyes MD [address] [place] [address] PCP - General Family Medicine 05/11/16
--- OUTSIDE RECORDS SUMMARY | 2025-02-04 13:31 | XMS_ITS | Clinical Summary ---
Author Organization [facility] Address [address] [place] [address] Phone Care Team Providers Care Tar And Ammonia Pump Operator Name Role Phone Unavailable Primary Care [...]
[2025-02-04 13:57] LABS: Add Urine Microscopic? NO; Appearance Urine Clear (Clear); Glucose Urine UA Negative (Negative); Leukocyte Esterase Ur Negative LEU/UL (Negative); Nitrate Urine Negative (Negative); Specific Grav Ur 1.023 (1.001-1.035)
--- NOTE | 2025-02-04 14:06 | ED_ITS ---
HPI - Back Pain/Injury General Chief Complaint: Back Pain/Injury Stated Complaint: fell days ago, now unable to ambulate Time Seen by Provider: 02/04/25 12:38 Source: patient Mode of arrival: ambulatory Limitations: no limitations History of Present Illness HPI Narrative: 74-year-old with a history of diabetes, chronic back pain here with a complains of fall 2 days ago. Patient states that she lost her balance and fell backwards denies hitting head or loss of consciousness. She states that she has been using the arm walker to ambulate. Denies any bladder or bowel incontinence MD elicited complaint: back pain and back injury Pertinent past history: recent trauma Onset (ago): day(s) (2) Timing: constant Severity: moderate Quality: aching Location: lumbar spine Radiation: none Exacerbating factors: movement Relieving factors: immobilization Context: fall Associated symptoms: denies other symptoms Related Data Home Medications ?Medication ?Instructions ?Recorded ?Confirmed ?Last Taken ?Type cetirizine 10 mg tablet (Zyrtec) 5 mg PO DAILY PRN Allergy Symptoms 07/17/19 01/06/25 09/21/24 History conjugated estrogens 0.625 mg/gram 0.625 mg vaginal EVERY OTHER DAY 09/09/24 01/06/25 09/21/24 History vaginal cream (Premarin) cyanocobalamin (vitamin B-12) 1,000 mcg PO DAILY 10/02/24 01/06/25 Unknown History 1,000 mcg capsule pyridoxine (vitamin B6) 100 mg 100 mg PO DAILY 10/02/24 01/06/25 Unknown History tablet Allergies Allergy/AdvReac Type Severity Reaction Status Date / Time piperacillin Allergy Unknown Rash Verified 02/04/25 11:50 tazobactam Allergy Unknown Rash Verified 02/04/25 11:50 trimethoprim Allergy Unknown Unknown Verified 02/04/25 11:50 Review of Systems Review of Systems: All systems reviewed & are unremarkable except as noted in HPI and below Constitutional: Constitutional: Reports no additional constitutional complaints Eyes: Eyes: Reports no additional eye complaints Cardiovascular: Cardiovascular: Reports no additional cardiovascular complaints Respiratory: Respiratory: Reports no additional respiratory complaints Gastrointestinal: Gastrointestinal: Reports no additional gastrointestinal complaints Musculoskeletal: Musculoskeletal: Reports no additional musculoskeletal complaints Integumentary/Breasts: Skin/Breast: Reports system reviewed and no additional complaints, except as docu PMFSH Past Medical History Medical History Unintentional weight loss Seronegative rheumatoid arthritis of multiple sites Postablative hypothyroidism Hypothyroid Acute rhinosinusitis Dysuria Type 2 diabetes mellitus with chronic kidney disease CKD (chronic kidney disease), stage III Kj hy kid w cr kid I-IV Seronegative rheumatoid arthritis of both hands Arthritis Depression Diabetes Irritable bowel disease Thyroid disease Surgical History Surgical History H/O repair of rotator cuff H/O: hysterectomy Hx of cholecystectomy Family History Family History Grandparent Diabetes mellitus Family history of cardiovascular disease Sibling Family history of malignant neoplasm Mother Family history of Parkinson's disease Father Family history of Hodgkin's lymphoma Other Family history of arthritis Social History Social History Social History: Years smoked: 30 Smoking status: Former smoker Tobacco type: cigarettes Smoking end date: 07/09/03 Alcohol intake: never Substance use: never Substance use type: does not use Do You Feel Safe in your Home?: Yes Lack of Transportation: No Lack of Food: Never True Current Housing: I Have Housing Concerned About Future Housing: No Difficulty Paying Gas/Electric Bills: No Difficulty Paying for Meds: No Currently Unemployed: Decline to Answer Education: High School Diploma/GED Difficulty w/ Childcare or Family Care: No Living arrangements: alone Occupation/Education: retired Gender identity (if verbalized by the patient): Female Sexual Orientation (if Verbalized by the Patient): Straight or Heterosexual Spiritual care concerns: No Exam Narrative: GENERAL: Well-appearing, well-nourished, and in no acute distress. HEAD: Normocephalic, atraumatic. EYES: PERRLA and EOMI. ENT: Nares clear, no rhinorrhea or epistaxis. Mucous membranes moist. NECK: Supple. CHEST: Clear to auscultation. No respiratory distress. HEART: Regular rate and rhythm. No murmur heard. Normal peripheral pulses. ABDOMEN: Soft, nontender, nondistended, normal active bowel sounds. EXTREMITIES: Normal range of motion. No edema. SKIN: Warm, dry, no rash. NEURO: No focal deficits. Alert and oriented x3. PSYCH: Normal mood and affect. Course Course Emergency Course: Informed patient about her lab work, CT and the x-ray findings. Advised to continue with tramadol and use walker all the time did discuss with Dr. Reyes's office for outpatient physical therapy. Vital Signs Vital signs: Vital Signs Temperature 36.4 C L 02/04/25 11:47 Pulse Rate 86 02/04/25 11:47 Respiratory Rate 16 02/04/25 11:47 Blood Pressure 156/69 H 02/04/25 11:47 Pulse Oximetry 97 02/04/25 11:47 Temperature 36.9 C 02/04/25 12:39 Pulse Rate 82 02/04/25 12:39 Respiratory Rate 18 02/04/25 12:39 Blood Pressure 159/67 H 02/04/25 12:39 Pulse Oximetry 96 02/04/25 12:39 MDM - Back Pain/Injury Lab Data Labs: Lab Results 02/04/25 Range/Units 13:40 Urine Color Yellow (Yellow) Urine Appearance Clear (Clear) Urine pH 5.0 (5.0-9.0) Ur Specific [place] 1.023 (1.001-1.035) Urine Protein Negative (Negative) mg/dL Urine Glucose (UA) Negative (Negative) mg/dL Urine Ketones Trace H (Negative) mg/dL Ur Blood (Man) Negative (Negative) Urine Nitrate Negative (Negative) Urine Bilirubin Negative (Negative) Urine Urobilinogen 1.0 (<2.0) mg/dL Leukocyte Esterase Rfl Negative (Negative) RICK/UL Discharge Plan Discharge Clinical Impression: Contusion of lower back Qualifiers: Encounter type: initial encounter Qualified Code(s): S30.0XXA - Contusion of lower back and pelvis, initial encounter Patient Disposition: Home Condition: Stable Instructions: Back Pain (ED) Additional Instructions: Continue to take tramadol as needed for pain. Continue rest of home medi cations. Fall precautions. Advised to follow with the primary doctor control outpatient physical therapy Patient Language: [place]dean Prescriptions: No Action cetirizine [Zyrtec] 10 mg tablet 5 mg PO DAILY PRN (Reason: Allergy Symptoms) (DME) blood-glucose meter [Accu-Chek Guide Glucose Meter] Misc See Rx Instructions .Route Qty: 1 0RF Rx Instructions: As directed to test blood sugar qam cyanocobalamin (vitamin B-12) 1,000 mcg capsule 1,000 mcg PO DAILY pyridoxine (vitamin B6) 100 mg tablet 100 mg PO DAILY escitalopram oxalate 10 mg tablet 10 mg PO DAILY Qty: 30 2RF Premarin 0.625 mg/gram cream 0.625 mg vaginal EVERY OTHER DAY Rx Instructions: off 5 days; repeat cycle amlodipine 5 mg tablet 5 mg PO DAILY Qty: 90 2RF hydrochlorothiazide 25 mg tablet 12.5 mg PO DAILY Qty: 45 2RF pravastatin 20 mg tablet 20 mg PO DAILY Qty: 90 2RF ferrous sulfate 325 mg (65 mg iron) tablet 650 mg PO .every other day Qty: 90 2RF diclofenac sodium 100 mg tablet extended release 24 hr 100 mg PO DAILY Qty: 90 3RF omeprazole 40 mg capsule,delayed release(DR/EC) 40 mg PO DAILY Qty: 90 2RF levothyroxine 125 mcg tablet 125 mcg PO DAILY Qty: 90 1RF (DME) lancets [Accu-Chek Fastclix Lancet Drum] Misc See Rx Instructions .ROUTE .COMPLEX Qty: 102 3RF Dose Instruction: USE TO TEST BLOOD SUGAR EVERY MORNING Rx Instructions: USE TO TEST BLOOD SUGAR EVERY MORNING losartan 100 mg tablet See Rx Instructions .ROUTE .COMPLEX Qty: 90 2RF Dose Instruction: TAKE 1 TABLET BY MOUTH DAILY Rx Instructions: TAKE 1 TABLET BY MOUTH DAILY pregabalin 150 mg capsule 150 mg PO BID Qty: 60 2RF Rx Instructions: Take 1 capsule p.o. q.12 hours as tolerated. Do not discontinue before calling clinic. (DME) Accu-Chek Guide test strips Strip See Rx Instructions .Route Qty: 100 3RF Rx Instructions: As directed to test blood sugar qam Follow-up/Referrals: Lonnie Reyes MD [Primary Care Provider] - Time of Disposition: 14:08
== END 2025-02-04 14:18 | disposition home or self-care (01) ==
PROVIDERS: Emergency Provider Family Medicine; PCP Family Medicine
DX: S30.0XXA Contusion of lower back and pelvis, initial encounter (principal); E11.22 Type 2 diabetes mellitus with diabetic chronic kidney disease; N18.30 Chronic kidney disease, stage 3 unspecified; E89.0 Postprocedural hypothyroidism; K58.9 Irritable bowel syndrome, unspecified; M06.09 Rheumatoid arthritis without rheumatoid factor, multiple sites; M19.90 Unspecified osteoarthritis, unspecified site; Z87.891 Personal history of nicotine dependence; Z90.49 Acquired absence of other specified parts of digestive tract; Z90.710 Acquired absence of both cervix and uterus; Z79.899 Other long term (current) drug therapy; W18.39XA Other fall on same level, initial encounter
CPT/HCPCS: 70450; 72100; 72125; 81003; 99284

== ENCOUNTER 2025-02-06 09:30 | Emergency (ER) | payer MEDICARE, SELFPAY ==
[2025-02-06] VITALS (26 sets, daily range): BP systolic 146–193; BP diastolic 64–155; PULSE 70–87; RESP 16–20; TEMP 36.4; O2SAT 94–100
--- NOTE | ~2025-02-06 | CT_ITS ---
EXAMINATION: CT brain wo con DATE: 02/06/2025 11:04 INDICATION: Trauma. Head injury. TECHNIQUE: Computed tomography (CT) of the head was performed without intravenous contrast. The dose- length product was 605.33 mGy-cm. Automated exposure control and iterative reconstruction technique w ere employed. COMPARISON: CT dated 02/04/2025 FINDINGS: Mild generalized atrophy. There are scattered mild periventricular and subcortical white ma tter changes, most likely related to small vessel ischemic disease (microangiopathy). There is chroni c left sphenoid sinus disease. Mastoids are pneumatized. No depressed skull fractures. No acute hemor rhage, infarction, mass or mass effect. IMPRESSION: 1. No acute intracranial abnormality. 2: Chronic left sphenoid sinus disease. Reviewed, dictated and finalized at location B.
--- NOTE | ~2025-02-06 | CT_ITS ---
History: Trauma PROCEDURE: CT cervical spine and facial bones without intravenous contrast. COMPARISON: 02/04/2025. Reference is also made to a plain film evaluation of the cervical spine dated 02/01/2023 as well as an MRI examination of the cervical spine dated 11/25/2021 TECHNIQUE: Multiple contiguous axial images of the cervical spine and facial bones were performed without the ad ministration of intravenous contrast. DLP: 511 mGy-cm FINDINGS: Preservation of the normal curvature of the cervical spine is identified. Posterior bridging osteophytes are identified at the level of C4/C5, C5/C6 and to a lesser degree C6/ C7. All 3 levels demonstrate mass effect on the spinal canal. Anterior bridging osteophytes are identified at the level of C6/C7 and C5/C6 with disc space narrowin g and endplate changes. No acute fractures are present within either the cervical spine or the facial bones. The bilateral lung apices are unremarkable. No soft tissue abnormality is appreciated. The airway is patent. Impression: Severe degenerative disease, most prominent at the levels of C4/C5 and C5/C6 with central canal steno sis, as detailed above. No fracture within either the facial bones or the cervical spine. Reviewed, dictated and finalized at location A. Impression: Severe degenerative disease, most prominent at the levels of C4/C5 and C5/C6 wi th central canal stenosis, as detailed above. No fracture within either the facial bones or the cervical spine.
--- NOTE | ~2025-02-06 | CT_ITS ---
CT pelvis wo con 02/06/2025 11:04 Indication: Trauma to the pelvis. Multiple falls. Procedure: CT pelvis performed noncontrast with sagittal and coronal reconstructions Comparison: CT dated 08/26/2024 Findings: Mild osteoarthritis of the hips. There is moderate lower lumbar spondylosis at L4-5 and L5- S1. Small umbilical hernia containing fat. Colonic diverticulosis without evidence for diverticulitis . There is atherosclerosis without aneurysm. No lymphadenopathy. No free air or free fluid in the pel vis. No acute fracture, subluxation or dislocation. Impression: 1: No acute fracture. Reviewed, dictated and finalized at location B. Impression: 1: No acute fracture.
--- NOTE | ~2025-02-06 | CT_ITS ---
EXAMINATION: CT thoracic lumbar wo con DATE: 02/06/2025 11:04 INDICATION: Multiple falls with back pain radiating down the legs. TECHNIQUE: Computed tomography (CT) of the thoracic spine was performed without intravenous contrast. Automated exposure control and iterative reconstruction technique were employed. The dose-length pro duct was 1750.61 mGy-cm. COMPARISON: CT chest, abdomen and pelvis dated 08/26/2024 FINDINGS: Thoracic spine: Mild upper thoracic levocurvature with minimal compensatory dextrocurvature in the mid to lower thora cic spine. Sagittal alignment is normal. Vertebral body heights are normal. No acute fracture. There is multilevel moderate disc height loss throughout the thoracic spine. There are bridging osteophytes at multiple levels consistent with diffuse idiopathic skeletal hyperostosis (DISH). There is multile stephenie moderate and severe thoracic facet osteoarthritis. Small endplate osteophytes potentially with as sociated mild disc bulges contributing to minimal central canal stenosis at T2-T3, T4-T5 and T5-T6. P artially calcified right paracentral disc protrusions contribute to mild central canal stenosis at T7 -T8 through T9-T10. Peripheral calcification at a larger left paracentral disc extrusion which appear s to extend a couple millimeters cephalad and caudal to the endplate margins at T11-T12 contributing to mild to moderate central canal stenosis at this level. Visualized portions of the posterior lungs are clear. Visualized thoracic aorta is normal in caliber. No pathologically enlarged lymphadenopathy at the bilateral mojgan and visualized mediastinum. Paravertebral soft tissues are unremarkable. Lumbar spine: 14 degrees lumbar levoscoliosis. 2 mm retrolisthesis L5 on S1. Vertebral body heights are normal. No fracture. Moderate to severe disc height loss at L5-S1 and moderate disc height loss at L4-5 with vac uum phenomena at both levels. Additional mild disc height loss at L1-L2 through L3-L4. Paravertebral soft tissues are unremarkable. Sigmoid diverticulosis without adjacent inflammatory stranding to sugg est diverticulitis. The following disc levels are specifically discussed: L1-L2: Disc is bulging. There is mild bilateral facet joint osteoarthritis. There is mild bilateral n eural foraminal stenosis. There is mild central canal stenosis. L2-L3: Posterior disc osteophyte complex. There is severe bilateral facet joint osteoarthritis. There is moderate bilateral neural foraminal stenosis. There is moderate to severe central canal stenosis. L3-L4: Disc is bulging. There is severe bilateral facet joint osteoarthritis. There is moderate bilat eral neural foraminal stenosis. There is severe central canal stenosis. L4-L5: Disc is bulging. There is severe bilateral facet joint osteoarthritis. There is moderate bilat eral neural foraminal stenosis. There is moderate central canal stenosis. L5-S1: Posterior disc osteophyte complex. There is moderate bilateral facet joint osteoarthritis. The re is moderate right and moderate to severe left neural foraminal stenosis. There is mild central can al stenosis. IMPRESSION: 1. Moderate thoracic and moderate to severe lumbar spondylosis with no acute osseous abnormality. Reviewed, dictated and finalized at location A. IMPRESSION: 1. Moderate thoracic and moderate to severe lumbar spondylosis with no acute os seous abnormality.
--- OUTSIDE RECORDS SUMMARY | 2025-02-06 09:33 | XMS_ITS | Patient Health Record ---
Author Organization [facility] Address [address] [place], [place] [id number] Care Team Providers Care Residential Finish Carpenter Name Role Phone KERRY ALCANTARA Unavailable [phone] Lonnie Reyes Unavailable Unavailable Allergies Allergen (clinical [...] Insured Coverage Start Date Coverage End Date [facility] [address] [address] [place] [address] [id number] Sarina Arias Self - patient is the insured Medical (General) History Medical History History ICD Code fibromyalgia neuropathy Arthritis rheumatoid arthritis Diabetic hypertension Surgical History Surgery Date(Month/Year) Hysterectomy Rotator Cuff Gall Bladder
--- OUTSIDE RECORDS SUMMARY | 2025-02-06 09:33 | XMS_ITS | Clinical Summary ---
Author Organization [facility] Address [facility] [address] [place] [address] [address] [place] [address] Phone Care Team Providers Care Stenographer Print Shop Name Role Phone Lonnie Reyes MD Primary [...] complete this topic Insurance MEDICARE Care Teams Stenographer Print Shop Relationship Specialty Start Date End Date Lonnie Reyes MD [id number] [place] [address] PCP - General Family Medicine 05/11/16
--- OUTSIDE RECORDS SUMMARY | 2025-02-06 09:33 | XMS_ITS | Clinical Summary ---
Author Organization [facility] Address [address] [place] [id number] Phone Care Team Providers Care Shoemaking Cutter Name Role Phone Unavailable Primary Care Provider [...]
--- NOTE | 2025-02-06 10:48 | ED.GENADULT ---
HPI - General Adult General Chief complaint: Fall Stated complaint: fall Time Seen by Provider: 02/06/25 09:31 History of Present Illness HPI narrative: 74-year-old female presents to the emergency department for evaluation for lower back pain and hip pain after having a ground level fall last night. Patient reports she was walking and tripped over a rug while using her walker. Patient did strike her face. Patient is having lower back pain that radiates down bilateral lower legs. Patient does live at home on her own and patient was concerned about her frequent falls and going home. Related Data Home Medications ?Medication ?Instructions ?Recorded ?Confirmed ?Last Taken ?Type cetirizine 10 mg tablet (Zyrtec) 5 mg PO DAILY PRN Allergy Symptoms 07/17/19 01/06/25 09/21/24 History conjugated estrogens 0.625 mg/gram 0.625 mg vaginal EVERY OTHER DAY 09/09/24 01/06/25 09/21/24 History vaginal cream (Premarin) cyanocobalamin (vitamin B-12) 1,000 mcg PO DAILY 10/02/24 01/06/25 Unknown History 1,000 mcg capsule pyridoxine (vitamin B6) 100 mg 100 mg PO DAILY 10/02/24 01/06/25 Unknown History tablet Allergies Allergy/AdvReac Type Severity Reaction Status Date / Time piperacillin Allergy Unknown Rash Verified 02/04/25 11:50 tazobactam Allergy Unknown Rash Verified 02/04/25 11:50 trimethoprim Allergy Unknown Unknown Verified 02/04/25 11:50 Review of Systems Review of Systems: All systems reviewed & are unremarkable except as noted in HPI and below PMFSH Past Medical History Medical History Unintentional weight loss Seronegative rheumatoid arthritis of multiple sites Postablative hypothyroidism Hypothyroid Acute rhinosinusitis Dysuria Type 2 diabetes mellitus with chronic kidney disease CKD (chronic kidney disease), stage III Kj hy kid w cr kid I-IV Seronegative rheumatoid arthritis of both hands Arthritis Depression Diabetes Irritable bowel disease Thyroid disease Surgical History Surgical History H/O repair of rotator cuff H/O: hysterectomy Hx of cholecystectomy Family History Family History Grandparent Diabetes mellitus Family history of cardiovascular disease Sibling Family history of malignant neoplasm Mother Family history of Parkinson's disease Father Family history of Hodgkin's lymphoma Other Family history of arthritis Social History Social History Social History: Years smoked: 30 Smoking status: Former smoker Tobacco type: cigarettes Smoking end date: 07/09/03 Alcohol intake: never Substance use: never Substance use type: does not use Do You Feel Safe in your Home?: Yes Lack of Transportation: No Lack of Food: Never True Current Housing: I Have Housing Concerned About Future Housing: No Difficulty Paying Gas/Electric Bills: No Difficulty Paying for Meds: No Currently Unemployed: Decline to Answer Education: High School Diploma/GED Difficulty w/ Childcare or Family Care: No Living arrangements: alone Occupation/Education: retired Gender identity (if verbalized by the patient): Female Sexual Orientation (if Verbalized by the Patient): Straight or Heterosexual Spiritual care concerns: No Exam Narrative: APPEARANCE: Well appearing, no pain, no distress, well-nourished. HEAD: normocephalic, atraumatic. EYES: PERRLA/EOMI, conjunctivae clear. NOSE: Normal no drainage EARS:TMS clear with good light reflex. THROAT: Pharynx clear, no exudate. NECK: Supple. No adenopathy, no masses. RESPIRATORY: Airway patent, respirations nonlabored. Clear to auscultation bilaterally, no rales, rhonchi, wheezing. CARDIOVASCULAR: Regular rate and rhythm without murmurs rubs or gallops. ABDOMINAL: Soft, nontender, nondistended, normal bowel sounds MUSCULOSKELETAL: Mid and lower back tenderness to palpation NEURO: Alert. Cranial nerves II through XII intact. Good gait. Good coordination SKIN: Warm, dry. Normal Color Course Vital Signs Vital signs: Vital Signs Temperature 97.5 F L 02/06/25 09:39 Pulse Rate 87 02/06/25 09:39 Respiratory Rate 20 02/06/25 09:39 Blood Pressure 146/82 H 02/06/25 09:39 Pulse Oximetry 94 02/06/25 09:39 Oxygen Delivery Room Air 02/06/25 09:39 Temperature 97.5 F L 02/06/25 09:39 Pulse Rate 70 02/06/25 12:17 Respiratory Rate 18 02/06/25 12:17 Blood Pressure 183/77 H 02/06/25 14:02 Pulse Oximetry 97 02/06/25 14:02 Oxygen Delivery Room Air 02/06/25 09:39 Medical Decision Making MDM Narrative Medical decision making narrative: 74-year-old female presents to the emergency department for evaluation for lower back pain that radiates down her lower legs. Patient has negative head face and cervical spine CT along with negative thoracic spine, lumbar spine and pelvic CT. Patient did have some degenerative disc disease and canal stenosis at C4 and C5. Patient will be treated for potential sciatica including medications for pain control muscle relaxer. Patient was able to ambulate in the emergency department without significant issue but patient states that she is unable to care for herself at home and is requesting placement in a rehab facility. Patient does not feel she is able to go home over the weekend in order to take care for self and is requesting care coordination consult in the emergency department. Care coordination did evaluate the patient and after further discussion patient will be going home to stay with her son. They are going to have outpatient follow-up with [facility] on Sunday. Patient family are comfortable the plan for discharge and outpatient follow-up. All questions concerns were addressed. Differential Diagnosis Differential Diagnosis: Subdural hematoma, subarachnoid hemorrhage, cervical spine fracture, thoracic spine fracture, lumbar spine fracture, pelvic fracture Vital Signs Vital Signs: Vital Signs Temperature 97.5 F L 02/06/25 09:39 Pulse Rate 87 02/06/25 09:39 Respiratory Rate 20 02/06/25 09:39 Blood Pressure 146/82 H 02/06/25 09:39 Pulse Oximetry 94 02/06/25 09:39 Oxygen Delivery Room Air 02/06/25 09:39 Temperature 97.5 F L 02/06/25 09:39 Pulse Rate 70 02/06/25 12:17 Respiratory Rate 18 02/06/25 12:17 Blood Pressure 183/77 H 02/06/25 14:02 Pulse Oximetry 97 02/06/25 14:02 Oxygen Delivery Room Air 02/06/25 09:39 Lab Data Lab results reviewed: Yes I reviewed the patient's lab results. Imaging Data Radiologist's impression: Impressions Head CT 02/06/25 11:06 IMPRESSION: 1. No acute intracranial abnormality. 2: Chronic left sphenoid sinus disease. Thoracic/Lumbar Spine CT 02/06/25 11:08 IMPRESSION: 1. Moderate thoracic and moderate to severe lumbar spondylosis with no acute osseous abnormality. Pelvis CT 02/06/25 11:13 Impression: 1: No acute fracture. Head/Cervical Spine/Facial Bones CT 02/06/25 11:22 Impression: Severe degenerative disease, most prominent at the levels of C4/C5 and C5/C6 with central canal stenosis, as detailed above. No fracture within either the facial bones or the cervical spine. Discharge Plan Discharge Clinical Impression: Falls frequently, Lower back pain, Sciatica Patient Disposition: Home Condition: Stable Instructions: Antibiotic Form, Sciatica (ED), Back Pain (ED) Additional Instructions: Medication for pain control along with muscle relaxants. Have close follow-up with your primary care physician. If you have any worsening symptoms then please call or return to the emergency department. Have outpatient [facility]. Patient Language: Bots[place]an Prescriptions: New tramadol 50 mg tablet 50 mg PO BID PRN (Reason: pain) Qty: 14 0RF cyclobenzaprine 10 mg tablet 10 mg PO BID PRN (Reason: muscle spasm) Qty: 10 0RF No Action cetirizine [Zyrtec] 10 mg tablet 5 mg PO DAILY PRN (Reason: Allergy Symptoms) (DME) blood-glucose meter [Accu-Chek Guide Glucose Meter] Misc See Rx Instructions .Route Qty: 1 0RF Rx Instructions: As directed to test blood sugar qam cyanocobalamin (vitamin B-12) 1,000 mcg capsule 1,000 mcg PO DAILY pyridoxine (vitamin B6) 100 mg tablet 100 mg PO DAILY escitalopram oxalate 10 mg tablet 10 mg PO DAILY Qty: 30 2RF Premarin 0.625 mg/gram cream 0.625 mg vaginal EVERY OTHER DAY Rx Instructions: off 5 days; repeat cycle amlodipine 5 mg tablet 5 mg PO DAILY Qty: 90 2RF hydrochlorothiazide 25 mg tablet 12.5 mg PO DAILY Qty: 45 2RF pravastatin 20 mg tablet 20 mg PO DAILY Qty: 90 2RF ferrous sulfate 325 mg (65 mg iron) tablet 650 mg PO .every other day Qty: 90 2RF diclofenac sodium 100 mg tablet extended release 24 hr 100 mg PO DAILY Qty: 90 3RF omeprazole 40 mg capsule,delayed release(DR/EC) 40 mg PO DAILY Qty: 90 2RF levothyroxine 125 mcg tablet 125 mcg PO DAILY Qty: 90 1RF (DME) lancets [Accu-Chek Fastclix Lancet Drum] Misc See Rx Instructions .ROUTE .COMPLEX Qty: 102 3RF Dose Instruction: USE TO TEST BLOOD SUGAR EVERY MORNING Rx Instructions: USE TO TEST BLOOD SUGAR EVERY MORNING losartan 100 mg tablet See Rx Instructions .ROUTE .COMPLEX Qty: 90 2RF Dose Instruction: TAKE 1 TABLET BY MOUTH DAILY Rx Instructions: TAKE 1 TABLET BY MOUTH DAILY pregabalin 150 mg capsule 150 mg PO BID Qty: 60 2RF Rx Instructions: Take 1 capsule p.o. q.12 hours as tolerated. Do not discontinue before calling clinic. (DME) Accu-Chek Guide test strips Strip See Rx Instructions .Route Qty: 100 3RF Rx Instructions: As directed to test blood sugar qam Follow-up/Referrals: Lonnie Reyes MD [Primary Care Provider] -
--- OUTSIDE RECORDS SUMMARY | 2025-02-06 11:06 | XMS_ITS | Clinical Summary ---
Author Organization [facility] Address [address] [place] [phone] Phone Care Team Providers Care Sample Washer Name Role Phone Unavailable Primary Care Provider [...]
--- OUTSIDE RECORDS SUMMARY | 2025-02-06 11:06 | XMS_ITS | Clinical Summary ---
Author Organization [facility] [place] Address PHYSICIAN [facility] [address] [place] [address] [address] [place] [address] Phone Care Team Providers Care Horticulturalist Name Role Phone Lonnie Reyes MD Primary [...] complete this topic Insurance MEDICARE Care Teams Horticulturalist Relationship Specialty Start Date End Date Lonnie Reyes MD [address] [place] [address] PCP - General Family Medicine 05/11/16
[2025-02-06] MEDS: CYCLOBENZAPRINE HCL 10 MG TABLET PO (11:19)
[2025-02-06] MEDS: HYDROcodone/acetaminophen (*CRX) 5-325 MG TABLET 1 TAB PO (11:19)
== END 2025-02-06 14:45 | disposition home or self-care (01) ==
PROVIDERS: Emergency Provider Emergency Medicine; PCP Family Medicine
DX: M54.42 Lumbago with sciatica, left side (principal); M54.41 Lumbago with sciatica, right side; R29.6 Repeated falls; E11.22 Type 2 diabetes mellitus with diabetic chronic kidney disease; N18.30 Chronic kidney disease, stage 3 unspecified; E89.0 Postprocedural hypothyroidism; M06.09 Rheumatoid arthritis without rheumatoid factor, multiple sites; M19.90 Unspecified osteoarthritis, unspecified site; K58.9 Irritable bowel syndrome, unspecified; Z87.891 Personal history of nicotine dependence; Z90.710 Acquired absence of both cervix and uterus; Z90.49 Acquired absence of other specified parts of digestive tract; W18.09XA Striking against other object with subsequent fall, initial encounter; J32.3 Chronic sphenoidal sinusitis; M47.816 Spondylosis without myelopathy or radiculopathy, lumbar region; M47.814 Spondylosis without myelopathy or radiculopathy, thoracic region; M50.321 Other cervical disc degeneration at C4-C5 level; M48.02 Spinal stenosis, cervical region; Z79.899 Other long term (current) drug therapy
CPT/HCPCS: 70450; 70486; 72125; 72128; 72131; 72192; 99284; A9270

== ENCOUNTER 2025-02-10 12:27 | Outpatient (RCR) | payer MEDICARE, SELFPAY ==
--- NOTE | 2025-02-10 13:45 | PTOPEVDC ---
Assessment and note entered by Sada Hensley, PT Thank you for referring Sarina Guzman to [facility].? An evaluation has been completed. No further treatment is needed. Evaluation Information Assessment Status Evaluation ICD-10 Condition Codes (PT) Repeated falls R29.6,Difficulty Walking R26.2, Weakness R53.1 Subjective Information Pt presents to skilled PT with decreased balance posing fall risk/safety risk. Patient reports she was walking and tripped over a rug while using her walker a few days ago. Pt has had 2 falls in the last 3 weeks. Pt uses a 2WW in her home and community. However, since her ER DC she has not been getting around much in her home due to FOF. She used a manual wheelchair for convenience and FOF to enter the clinic this date. Pt has trouble with transfers/sit to stand/ standing/walking/stairs. She reports difficulty with entering/exiting her home and being safe while living alone. She feels like her legs are going to give out while attempting to stand/walk/ toilet transfer. Her primary concern is her ability to navigate her home and is very fearful of attempting to come to our clinic. Reported Pain Level Pain Score Moderate Pain: Burton Corado Additional Pain Score Comments back and posterior thigh Assessment PT Clinical Summary Upon evaluation of this 74 year old female following a recent ground level fall, Pt presented with decreased independence with mobility and functional transfers due to decreased functional balance, BLE strength, safety awareness, and endurance. The patient was Mod A x 1 to perform a toilet transfer safely and was unable to participate in additional objective measurements for safety concerns and fatigue. At this time, the patient is reporting difficulties navigating her home and the community safely and was educated on the benefits of home health physical therapy. The patient was agreeable due to her FOF and stated she was never informed she had the option to have home health. She wishes to proceed with HH and is contacting her PCP for an updated order. Pending a home health evaluation and improved safety concerns with general mobility, pt may return to OP PT for further evaluation of her back /post leg pain and decreased balance. Plan of Care Treatment Frequency and recommending HH PT, DC from OP PT at this time Duration
--- NOTE | 2025-02-11 09:39 | PCPTNOTE ---
spoke to pt nephew, Tyson, via phone. Addressing Qs and Cs about lack of therapy as pt doctor informed them he will not order HH PT until she sees neurology
== END 2025-02-13 08:43 | disposition home or self-care (01) ==
LOC: ANHGOSHPT 12:27
PROVIDERS: PCP Family Medicine; Visit Provider Physician Assistant
DX: R29.6 Repeated falls (principal); R26.81 Unsteadiness on feet; R53.1 Weakness
CPT/HCPCS: 97161; 97530

== ENCOUNTER 2025-02-13 17:07 | Outpatient (CLI) | payer MEDICARE, SELFPAY ==
--- OUTSIDE RECORDS SUMMARY | 2025-02-13 15:00 | XMS_ITS | Clinical Summary ---
Author Organization [facility] [place] Address PHYSICIAN [facility] [address] [place] [address] [address] [place] [address] Phone Care Team Providers Care Technologist Development Name Role Phone Lonnie Reyes MD Primary [...] complete this topic Insurance MEDICARE Care Teams Technologist Development Relationship Specialty Start Date End Date Lonnie Reyes MD [address] [place] [address] PCP - General Family Medicine 05/11/16
--- OUTSIDE RECORDS SUMMARY | 2025-02-13 15:00 | XMS_ITS | Clinical Summary ---
Author Organization [facility] Address [address] [place] [phone] Phone Care Team Providers Care Train Director Name Role Phone Unavailable Primary Care [...]
[2025-02-13 15:23] LABS: Hematocrit 36.9 % (37.0-47.0); Hemoglobin 11.7 g/dL (12.0-15.0); Immature Granulocyte Percent A 0.2 % (0-0.5); Lymphocytes Absolute Auto 1.63 K/mm3 (0.9-3.2); Mean Corpuscular HGB Conc 31.7 g/dl (32-36); Mean Corpuscular Hemoglobin 29.3 pg (26-34); Mean Corpuscular Volume 92.3 fl (80-100); Nucleated Red Blood Cells Absolute Auto 0.000 K/mm3 (0.0-0.012); Nucleated Red Blood Cells Perc 0.0 % (0.0-0.2); Platelet Count Result 267 k/mm3 (150-375); Red Blood Count 4.00 M/mm3 (4.2-5.4); White Blood Count 8.1 K/mm3 (4.5-10.0)
[2025-02-13 15:40] LABS: Alanine Aminotransferase 55 U/L (6-35); Albumin Level 4.0 g/dL (3.5-5.1); Alkaline Phosphatase 70 U/L (38-126); Anion Gap 8 mmol/L (4-12); Aspartate Amino Transferase 69 U/L (14-36); Bilirubin,Total 0.5 mg/dL (0.2-1.3); Blood Urea Nitrogen 20 mg/dL (7-17); Calcium 9.5 mg/dL (8.4-10.2); Carbon Dioxide 27 mmol/L (22-30); Chloride 103 mmol/L (98-107); Estimated Glomerular Filt Rate 57; Glucose 142 mg/dL (65-110); Potassium 3.6 mmol/L (3.4-5.0); Sodium 138 mmol/L (137-145); Total Protein 7.1 g/dL (6.3-8.2)
--- OUTSIDE RECORDS SUMMARY | 2025-02-13 17:09 | XMS_ITS | Clinical Summary ---
Author Organization [facility] Address [address] [place] [phone] Phone Care Team Providers Care Worship Pastor Name Role Phone Unavailable Primary Care Provider [...]
--- OUTSIDE RECORDS SUMMARY | 2025-02-13 17:09 | XMS_ITS | Clinical Summary ---
Author Organization [facility] [place] Address PHYSICIAN [facility] [address] [place] [address] [address] [place] [address] Phone Care Team Providers Care Office Chair Assembler Name Role Phone Lonnie Reyes MD Primary [...] complete this topic Insurance MEDICARE Care Teams Office Chair Assembler Relationship Specialty Start Date End Date Lonnie Reyes MD [address] [place] [address] PCP - General Family Medicine 05/11/16
[2025-02-13 17:27] LABS: Add Urine Microscopic? YES; Appearance Urine Clear (Clear); Glucose Urine UA Negative (Negative); Leukocyte Esterase Ur Negative LEU/UL (Negative); Nitrate Urine Negative (Negative); Non Pathogenic Casts 0-2; Specific Grav Ur 1.030 (1.001-1.035)
[2025-02-13 18:56] LABS: Vitamin B12 > 1000.0 pg/mL (239-931)
== END 2025-02-13 17:08 | disposition home or self-care (01) ==
LOC: ANHLAB 17:07
PROVIDERS: PCP Family Medicine
DX: R30.0 Dysuria (principal); G62.9 Polyneuropathy, unspecified; R53.1 Weakness; W19.XXXA Unspecified fall, initial encounter; I10 Essential (primary) hypertension; E78.5 Hyperlipidemia, unspecified; E11.9 Type 2 diabetes mellitus without complications
CPT/HCPCS: 36415; 80053; 81001; 82607; 85025; 87086

== ENCOUNTER 2025-03-20 13:34 | Outpatient (CLI) | payer MEDICARE, SELFPAY ==
--- NOTE | ~2025-03-20 | MR_ITS ---
EXAMINATION: MR thoracic spine wo con DATE: 03/20/2025 14:46 INDICATION: Spinal stenosis, site unspecified. TECHNIQUE: Magnetic resonance imaging (MRI) of the thoracic spine was performed without intravenous contrast. COMPARISON: Thoracic spine MRI 11/11/2015 FINDINGS: There is 7 degrees dextrocurvature of thoracic spine. There is 2 mm anterolisthesis of T2 on T3. There is mild chronic anterior wedging of T6-T12 vertebral bodies associated with Schmorl's nodes. There is mildly decreased disc height at many levels. There is moderately decreased disc height at T2-T3, T3- T4, and T4-T5. There is multilevel facet joint osteoarthritis, severe at many levels. At T1-T2, there is a right central protrusion with mild central canal stenosis. At T2-T3, there is a central extrusion with mild central canal stenosis. At T4-T5, there is a central protrusion with mild central canal stenosis. At T5-T6, there is a central protrusion with mild central canal stenosis. At T7-T8, there is a right central extrusion with mild central canal stenosis and ventral indentation of the spinal cord. At T8-T9, there is a right central extrusion with mild central canal stenosis and ventral indentation of the spinal cord. At T9-T10, there is a right central extrusion with mild central canal stenosis. At T10-T11, the disc is bulging with mild central canal stenosis. At T11-T12, there is a left central extrusion with mild central canal stenosis and ventral indentation of the spinal cord. There is mild neural foraminal stenosis at multiple levels on either side. On the right, there is moderate neural frontal stenosis at T2-T3 and T4-T5. On the left, there is severe neural foraminal stenosis at T2-T3 and moderate neural foraminal stenosis at T7-T8. The spinal cord signal intensity is normal. IMPRESSION: 1. Moderate thoracic spondylosis. Reviewed, dictated and finalized at location E.
--- NOTE | ~2025-03-20 | MR_ITS ---
EXAMINATION: MR cervical spine wo con DATE: 03/20/2025 14:28 INDICATION: Spinal stenosis, site unspecified. TECHNIQUE: Magnetic resonance imaging (MRI) of the cervical spine was performed without intravenous contrast. COMPARISON: Cervical spine MRI 11/25/21 FINDINGS: Alignment is normal. Vertebral body heights are normal. There is moderately decreased disc height at C4-C5, C5-C6, and C6-C7. The following disc levels are specifically discussed: C2-C3: The disc does not extend beyond the endplate margin. There is no uncovertebral joint osteoarthritis. There is moderate bilateral facet joint osteoarthritis. There is no neural foraminal stenosis. There is no central canal stenosis. C3-C4: The disc is bulging with superimposed right central extrusion. There is mild bilateral uncovertebral joint osteoarthritis. There is mild right and severe left facet joint osteoarthritis. There is mild bilateral neural foraminal stenosis. There is mild central canal stenosis. There is moderate stenosis of right lateral recess. C4-C5: The disc is bulging. There is severe bilateral uncovertebral joint osteoarthritis. There is mild bilateral facet joint osteoarthritis. There is severe bilateral neural foraminal stenosis. There is moderate central canal stenosis with ventral and dorsal indentation of the spinal cord. C5-C6: The disc is bulging. There is severe bilateral uncovertebral joint osteoarthritis. There is mild bilateral facet joint osteoarthritis. There is severe right and moderate left neural foraminal stenosis. There is mild central canal stenosis. C6-C7: The disc is bulging. There is severe bilateral uncovertebral joint osteoarthritis. There is mild bilateral facet joint osteoarthritis. There is moderate right and severe left neural foraminal stenosis. There is mild central canal stenosis. C7-T1: The disc does not extend beyond the endplate margin. There is no uncovertebral joint osteoarthritis. There is severe bilateral facet joint osteoarthritis. There is mild bilateral neural foraminal stenosis. There is no central canal stenosis. IMPRESSION: 1. Severe cervical spondylosis, stable from 11/25/21. Reviewed, dictated and finalized at location E.
--- NOTE | ~2025-03-20 | MR_ITS ---
EXAMINATION: MR lumbar spine wo con DATE: 03/20/2025 15:13 INDICATION: Spinal stenosis, site unspecified. TECHNIQUE: Magnetic resonance imaging (MRI) of the lumbar spine was performed without intravenous contrast. Sequences included sagittal T2-weighted FSE, sagittal T2-weighted FS FSE, sagittal T1-weighted FSE, and axial T2-weighted FSE. COMPARISON: Lumbar spine MRI 09/10/2015 FINDINGS: There is 7 degrees levocurvature of lumbar spine. There is mild chronic anterior wedging of T10 and T11 vertebral bodies. There is mildly decreased disc height at L1-L2, L2-L3, L3-L4, and L4-L5 and severely decreased disc height at L5-S1. The distal spinal cord signal intensity is normal. The conus medullaris is at L1. The following disc levels are specifically discussed: L1-L2: The disc is bulging with superimposed right central extrusion. There is moderate bilateral facet joint osteoarthritis. There is mild bilateral neural foraminal stenosis. There is mild central canal stenosis. L2-L3: The disc is bulging and has an annular fissure. There is severe bilateral facet joint osteoarthritis. There is mild bilateral neural foraminal stenosis. There is mild central canal stenosis. L3-L4: The disc is bulging and has an annular fissure. There is severe bilateral facet joint osteoarthritis. There is a 5 mm synovial cyst from right facet joint in the epidural space. There is a 5 mm synovial cyst from left facet joint in the epidural space. There is moderate bilateral neural foraminal stenosis. There is moderate central canal stenosis. There is severe stenosis of right lateral recess. L4-L5: The disc is bulging with superimposed right central extrusion. There is severe bilateral facet joint osteoarthritis. There is moderate right and mild left neural foraminal stenosis. There is mild central canal stenosis. L5-S1: The disc is bulging with superimposed left subarticular zone extrusion. There is severe bilateral facet joint osteoarthritis. There is moderate bilateral neural foraminal stenosis. There is mild central canal stenosis. There is moderate stenosis of the lateral recesses bilaterally. IMPRESSION: 1. Severe lumbar spondylosis, worsened from 09/10/2015. Reviewed, dictated and finalized at location E.
== END 2025-03-20 13:35 | disposition home or self-care (01) ==
LOC: GOSHIMG 13:35
PROVIDERS: PCP Family Medicine; Visit Provider Nurse Practitioner Adult Health
DX: M48.00 Spinal stenosis, site unspecified (principal); M47.892 Other spondylosis, cervical region; M47.894 Other spondylosis, thoracic region
CPT/HCPCS: 72141; 72146; 72148

== ENCOUNTER 2025-04-23 12:25 | Outpatient (CLI) | payer MEDICARE, SELFPAY ==
--- NOTE | ~2025-04-23 | XR_ITS ---
XR cervical spine 4-5V Indication: M48.00 - Spinal stenosis, site unspecified Comparison: None Findings: Grade 1 retrolisthesis C4 on C5, no fracture. No subluxation flexion and extension. Moderate loss of disc height C4-5 C5-6 and C6-7. Soft tissues unremarkable Impression: No acute abnormality. Reviewed, dictated and finalized at location P. Impression: No acute abnormality.
== END 2025-04-23 12:26 | disposition home or self-care (01) ==
LOC: MICIMG 12:28
PROVIDERS: PCP Family Medicine; Visit Provider Family Medicine
DX: M48.02 Spinal stenosis, cervical region (principal)
CPT/HCPCS: 72050

== ENCOUNTER 2025-04-24 15:35 | Outpatient (CLI) | payer MEDICARE, SELFPAY ==
--- NOTE | ~2025-04-24 | XR_ITS ---
EXAMINATION: XR chest 2V, 04/24/2025 15:40 CDT HISTORY: R60.0 - Localized edema COMPARISON: No comparisons available. Technique: 2 views obtained. Findings: The lungs are clear, no effusion. No pneumothorax. Heart is normal size. Mediastinal and hilar contours are within normal limits. Bony thorax no acute abnormality. Impression: No acute cardiopulmonary abnormality. Reviewed, dictated and finalized at location P. Impression: No acute cardiopulmonary abnormality.
== END 2025-04-24 15:36 | disposition home or self-care (01) ==
LOC: MICIMG 15:36
PROVIDERS: PCP Family Medicine
DX: R60.9 Edema, unspecified (principal); R06.2 Wheezing; R06.02 Shortness of breath
CPT/HCPCS: 71046

== ENCOUNTER 2025-05-22 13:47 | Outpatient (CLI) | payer MEDICARE, SELFPAY ==
--- NOTE | ~2025-05-22 | XR_ITS ---
EXAMINATION: XR chest 2V, 05/22/2025 15:20 CHEMICAL RESEARCH ENGINEER HISTORY: G95.9 - Disease of spinal cord, unspecified COMPARISON: No comparisons available. Technique: 2 views obtained. Findings: The lungs are clear, no effusion. No pneumothorax. Heart is normal size. Mediastinal and hilar contours are within normal limits. Bony thorax no acute abnormality. Impression: No acute cardiopulmonary abnormality. Reviewed, dictated and finalized at location P. ICAL RESEARCH ENGINEER Impression: No acute cardiopulmonary abnormality.
--- NOTE | 2025-05-22 14:42 | ECG_ITS ---
Test Date: 2025-05-22 14:57:07 Measurements Intervals [place] Rate: 62 P: 58 ND: 156 QRS: -26 QRSD: 134 T: 18 QT: 435 QTc: 442 Interpretive Statements SINUS RHYTHM RBBB Electronically Signed On 05-23-2025 10:49:35 BOTTOM BLEACHER by Alexis Montelongo D.O
[2025-05-22 15:11] LABS: Hematocrit 39.5 % (37.0-47.0); Hemoglobin 12.7 g/dL (12.0-15.0); Mean Corpuscular HGB Conc 32.2 g/dl (32-36); Mean Corpuscular Hemoglobin 29.4 pg (26-34); Mean Corpuscular Volume 91.4 fl (80-100); Platelet Count Result 240 k/mm3 (150-375); Red Blood Count 4.32 M/mm3 (4.2-5.4); White Blood Count 9.6 K/mm3 (4.5-10.0)
[2025-05-22 15:16] LABS: Add Urine Microscopic? YES; Appearance Urine Clear (Clear); Glucose Urine UA Negative (Negative); Leukocyte Esterase Ur Negative LEU/UL (Negative); Nitrate Urine Negative (Negative); Specific Grav Ur 1.022 (1.001-1.035)
[2025-05-22 15:22] LABS: INR 1.1; Prothrombin Time 14.2 Seconds (11.1-14.7)
[2025-05-22 15:23] LABS: Partial Thromboplastin Time 25.8 Seconds (22.3-36.8)
--- OUTSIDE RECORDS SUMMARY | 2025-05-22 18:05 | XMS_ITS | Clinical Summary ---
Author Organization [facility] Address [address] [place] [phone] Phone Care Team Providers Care Vacuum Cleaner Repairer Name Role Phone Unavailable Primary Care Provider [...]
== END 2025-05-22 13:48 | disposition home or self-care (01) ==
LOC: ANHSURGERY 13:50
PROVIDERS: PCP Family Medicine; Visit Provider Neurological Surgery
DX: Z01.818 Encounter for other preprocedural examination (principal); G95.9 Disease of spinal cord, unspecified; I45.10 Unspecified right bundle-branch block
CPT/HCPCS: 36415; 71046; 81001; 85027; 85610; 85730; 93005

== ENCOUNTER 2025-06-03 00:33 | Day surgery (SDC) | payer MEDICARE, SELFPAY ==
[2025-05-22 14:06] VITALS: BP 145/66; PULSE 67; RESP 16; TEMP 36.3; O2SAT 96; BMI 33.7
--- NOTE | 2025-05-22 14:30 | PC.NURSE ---
[facility] has started construction of its new state of the art ER which will open Spring 2026. With this, we anticipate parking may be a challenge for some our surgical patients and families. Parking spaces are limited but are available for all Surgical, obstetrics, and ER patients sharing this lot. If you arrive and find you are having a hard time finding a parking space, please note that we understand the challenges, please drive around the hospital and park near Hospital Entrance 1. When you enter this entrance, you can ask a volunteer to direct or take you back to the surgical waiting area to check in. We appreciate everyone?s understanding of these expected challenges while we build for your future. Report to the Outpatient Waiting Room, entrance under the green pavilion located off [address], at time _0930am on date __06/03/25 . Planned Procedure Time: __1130am .? Time changes happen often and if your time is changed the preop area will call you the afternoon before. - You and your visitor will be asked to self-screen and do not enter if you have any COVID symptoms. Please call surgeon if you need to reschedule. - A mask is optional within the hospital at this time. Patients may have clear liquids (water, carbonated beverages, clear teas, apple juice) until 3 hours prior to surgery with a maximum of 20 ounces. - No food from midnight until time of surgery and no smoking, or chewing tobacco (or any form of nicotine). No chewing gum, candy or mints.( 0830am) - Take only the following medications with a SIP of water on the morning of surgery: ___Amlodipine, Levothyroxine, Pregabalin, Lexapro, Tramadol and Tylenol if needed DO NOT STOP ANY OF YOUR OTHER PRESCRIPTION MEDICATIONS PRIOR TO SURGERY EXCEPT THE FOLLOWING Hold all vitamins and supplements for 3 days per anesthesiologist. Medications to discontinue per physician ____Diclofenac, NSAIDS, Aspirin for [address] Aparicio. Date to take last dose____05/26/25 Please no make-up, nail guatemalan, hairspray, perfume, deodorant, or body powder the day of surgery.? No jewelry (including any body piercings) or valuables the day of surgery, leave them at home.? Please take a shower or bath the night before & the the morning of, surgery with an antibacterial soap GOLD DIAL.? Wear comfortable, loose fitting clothing.? Overnight bag w toiletries and cellphone. - Jewelry must be removed prior to entering the operating room.? Rings and piercings that are not removed may be cut off. - The hospital will not accept responsibility for valuables.? - Please leave all valuables, including medications, at home the day of surgery. If you are going home after surgery, a licensed package car driver must drive you home.? - NO public transportation without another adult if you receive anesthesia. - We recommend that an adult stay with you for 24 hours following discharge. - We also recommend that you do not drive, make important decision, drink alcoholic beverages, or take any drugs that were not prescribed by your health care provider for at least 24 hours after your discharge time. Follow any additional instructions given to you from your surgeon. Telephone instructions given to _Patient and Buddy Christsergey and asked if any additional questions and then verbalized understanding. Patient advised to call surgeon office or pre surgery nurse liaison [phone] if any additional questions.
[2025-06-03] VITALS (16 sets, daily range): BP systolic 125–159; BP diastolic 57–79; PULSE 77–94; RESP 11–16; TEMP 35.9–36.8; O2SAT 94–99; BMI 33.7
--- NOTE | ~2025-06-03 | XR_ITS ---
XR fluoroscopy no charge Indication: Anterior cervical discectomy with fusion at C4-5 and C5-6 TECHNIQUE: Fluoroscopy used during Anterior cervical discectomy with fusion at C4-5 and C5-6 performed by [Caron Aparicio MD] on 06/03/2025. 4 seconds of fluoroscopy time with 2 fluoroscopic images captured. FINDINGS: Correlate with procedure note. IMPRESSION: Fluoroscopy used during Anterior cervical discectomy with fusion at C4-5 and C5-6. Reviewed, dictated and finalized at location O. ROENTEROLOGY PROFESSOR
--- OUTSIDE RECORDS SUMMARY | 2025-06-03 00:37 | XMS_ITS | Clinical Summary ---
Author Organization [facility] [place] Address PHYSICIAN [facility] [address] [place] [address] [address] [place] [address] Phone Care Team Providers Care Market Gardener Name Role Phone Lonnie Reyes MD Primary [...] 1-dose 75+ series) 2023 Influenza Immunization (#1) 2025 SARS-COV-2 Immunization ( - season) 2025 Hepatitis B Immunization Aged Out No [...] complete this topic Insurance MEDICARE Care Teams Market Gardener Relationship Specialty Start Date End Date Lonnie Reyes MD [id number] [place] [address] PCP - General Family Medicine 05/11/16
--- OUTSIDE RECORDS SUMMARY | 2025-06-03 00:37 | XMS_ITS | Clinical Summary ---
Author Organization [facility] Address [address] [place] [id number] Phone Care Team Providers Care Chalk Tester Name Role Phone Unavailable Primary Care Provider [...]
--- NOTE | 2025-06-03 08:20 | WPDANESEPP ---
Anes - Eval Pre Procedure Procedure: Operation Date: 06/03/25 10:30 Proposed Procedures p Anterior Cervical Discectomy with Fusion of C4-5, C5-6 - Caron Aparicio MD Date/Time: 06/03/25 08:20 Pre Op Diagnosis: Cervical Myelopathy Patient Data Age: 74 Gender: F Height: 1.68 m Weight: 95 kg Last Vital Signs Temp 36.3 C L 05/22/25 14:06 Pulse 67 05/22/25 14:06 Resp 16 05/22/25 14:06 BP 145/66 H 05/22/25 14:06 Pulse Ox 96 05/22/25 14:06 O2 Del Method Room Air 05/22/25 14:06 Allergies Allergy/AdvReac Type Severity Reaction Status Date / Time piperacillin Allergy Unknown Rash Verified 05/22/25 13:56 tazobactam Allergy Unknown Rash Verified 05/22/25 13:56 trimethoprim Allergy Unknown Unknown Verified 05/22/25 13:56 Home Medications ?Medication ?Instructions ?Recorded ?Confirmed ?Type cetirizine 10 mg tablet (Zyrtec) 5 mg PO DAILY PRN Allergy Symptoms 07/17/19 05/22/25 History blood-glucose meter (Accu-Chek #1 ea 01/02/23 05/22/25 Rx Guide Glucose Meter) diclofenac sodium 100 mg 100 mg PO DAILY #90 tabs 08/11/24 05/22/25 Rx tablet,extended release 24 hr lancets (Accu-Chek Fastclix Lancet #102 ea 09/01/24 05/22/25 Rx Drum) losartan 100 mg tablet See Rx Instructions .Route 09/13/24 05/22/25 Rx .COMPLEX #90 tabs pyridoxine (vitamin B6) 100 mg 100 mg PO DAILY 10/02/24 05/22/25 History tablet blood sugar diagnostic (Accu-Chek #100 ea 12/02/24 05/22/25 Rx Guide test strips) levothyroxine 125 mcg tablet 125 mcg PO DAILY #90 tabs 02/12/25 05/22/25 Rx pravastatin 20 mg tablet 20 mg PO DAILY #90 tabs 03/11/25 05/22/25 Rx escitalopram oxalate 10 mg tablet 10 mg PO DAILY #30 tabs 03/20/25 05/22/25 Rx pregabalin 200 mg capsule 200 mg PO BID #60 caps 04/22/25 05/22/25 Rx ferrous sulfate 325 mg (65 mg 650 mg (2 x 325 mg (65 mg iron)) 04/30/25 05/22/25 Rx iron) tablet PO .every other day #90 tabs tramadol 50 mg tablet 50 mg PO BID PRN pain #14 tabs 05/12/25 05/22/25 Rx amlodipine 5 mg tablet 5 mg PO DAILY #60 tabs 05/15/25 05/22/25 Rx hydralazine 10 mg tablet 10 mg PO Q12H #90 tabs 05/15/25 05/22/25 Rx omeprazole 40 mg capsule,delayed 40 mg PO DAILY #90 caps 05/18/25 05/22/25 Rx release hydrochlorothiazide 25 mg tablet 12.5 mg PO DAILY 05/22/25 05/22/25 History Patient hx anesthesia problems: none Family hx anesthesia problems: none Results Review: All pre-operative results and documents have been reviewed as part of the pre-operative evaluation. [facility] Past Medical History Medical History Unintentional weight loss Seronegative rheumatoid arthritis of multiple sites Postablative hypothyroidism Hypothyroid Acute rhinosinusitis Dysuria Type 2 diabetes mellitus with chronic kidney disease CKD (chronic kidney disease), stage III Kj hy kid w cr kid I-IV Seronegative rheumatoid arthritis of both hands Arthritis Depression Diabetes Irritable bowel disease Thyroid disease Surgical History Surgical History H/O repair of rotator cuff H/O: hysterectomy Hx of cholecystectomy Family History Family History Grandparent Diabetes mellitus Family history of cardiovascular disease Sibling Family history of malignant neoplasm Mother Family history of Parkinson's disease Father Family history of Hodgkin's lymphoma Other Family history of arthritis Social History Social History Social History: Smoking packs per day: 1 Smoking cigarettes per day: 20.0 Years smoked: 30 Smoking pack-years: 30.00 Smoking status: Former smoker Tobacco type: cigarettes Second hand tobacco smoke exposure: Yes Smoking end date: 07/09/03 Alcohol intake: never Substance use: never Substance use type: does not use Do You Feel Safe in your Home?: Yes Lack of Transportation: No Lack of Food: Never True Current Housing: I Have Housing Concerned About Future Housing: No Difficulty Paying Gas/Electric Bills: No Difficulty Paying for Meds: No Currently Unemployed: Decline to Answer Education: High School Diploma/GED Difficulty w/ Childcare or Family Care: No Living arrangements: alone Occupation/Education: retired Gender identity (if verbalized by the patient): Female Sexual Orientation (if Verbalized by the Patient): Straight or Heterosexual Spiritual care concerns: No Exam Day of Procedure 06/03/25 08:20
[2025-06-03] MEDS: LACTATED RINGERS 1,000 ML 30 ML IV CONT ×2 (09:00→13:55)
--- NOTE | 2025-06-03 09:33 | WPDANESEPPF ---
Anes - Initial Pre Proc Eval Procedure: Operation Date: 06/03/25 10:30 Proposed Procedures p Anterior Cervical Discectomy with Fusion of C4-5, C5-6 - Caron Aparicio MD Date/Time: 06/03/25 09:33 Surgeon: Caron Aparicio MD Pre Op Diagnosis: Cervical Myelopathy Patient Data Age: 74 Gender: F Height: 1.68 m Weight: 95 kg Last Vital Signs Temp 36.3 C L 05/22/25 14:06 Pulse 67 05/22/25 14:06 Resp 16 05/22/25 14:06 BP 145/66 H 05/22/25 14:06 Pulse Ox 96 05/22/25 14:06 O2 Del Method Room Air 05/22/25 14:06 Allergies Allergy/AdvReac Type Severity Reaction Status Date / Time piperacillin Allergy Unknown Rash Verified 05/22/25 13:56 tazobactam Allergy Unknown Rash Verified 05/22/25 13:56 trimethoprim Allergy Unknown Unknown Verified 05/22/25 13:56 Home Medications ?Medication ?Instructions ?Recorded ?Confirmed ?Type cetirizine 10 mg tablet (Zyrtec) 5 mg PO DAILY PRN Allergy Symptoms 07/17/19 05/22/25 History blood-glucose meter (Accu-Chek #1 ea 01/02/23 05/22/25 Rx Guide Glucose Meter) diclofenac sodium 100 mg 100 mg PO DAILY #90 tabs 08/11/24 05/22/25 Rx tablet,extended release 24 hr lancets (Accu-Chek Fastclix Lancet #102 ea 09/01/24 05/22/25 Rx Drum) losartan 100 mg tablet See Rx Instructions .Route 09/13/24 05/22/25 Rx .COMPLEX #90 tabs pyridoxine (vitamin B6) 100 mg 100 mg PO DAILY 10/02/24 05/22/25 History tablet blood sugar diagnostic (Accu-Chek #100 ea 12/02/24 05/22/25 Rx Guide test strips) levothyroxine 125 mcg tablet 125 mcg PO DAILY #90 tabs 02/12/25 05/22/25 Rx pravastatin 20 mg tablet 20 mg PO DAILY #90 tabs 03/11/25 05/22/25 Rx escitalopram oxalate 10 mg tablet 10 mg PO DAILY #30 tabs 03/20/25 05/22/25 Rx pregabalin 200 mg capsule 200 mg PO BID #60 caps 04/22/25 05/22/25 Rx ferrous sulfate 325 mg (65 mg 650 mg (2 x 325 mg (65 mg iron)) 04/30/25 05/22/25 Rx iron) tablet PO .every other day #90 tabs tramadol 50 mg tablet 50 mg PO BID PRN pain #14 tabs 05/12/25 05/22/25 Rx amlodipine 5 mg tablet 5 mg PO DAILY #60 tabs 05/15/25 05/22/25 Rx hydralazine 10 mg tablet 10 mg PO Q12H #90 tabs 05/15/25 05/22/25 Rx omeprazole 40 mg capsule,delayed 40 mg PO DAILY #90 caps 05/18/25 05/22/25 Rx release hydrochlorothiazide 25 mg tablet 12.5 mg PO DAILY 05/22/25 05/22/25 History Laboratory Tests 06/03/25 09:09 Blood Type Pending Antibody Screen Pending Patient hx anesthesia problems: none Family hx anesthesia problems: none Results Review: All pre-operative results and documents have been reviewed as part of the pre-operative evaluation. [facility] Past Medical History Medical History Unintentional weight loss Seronegative rheumatoid arthritis of multiple sites Postablative hypothyroidism Hypothyroid Acute rhinosinusitis Dysuria Type 2 diabetes mellitus with chronic kidney disease CKD (chronic kidney disease), stage III Kj hy kid w cr kid I-IV Seronegative rheumatoid arthritis of both hands Arthritis Depression Diabetes Irritable bowel disease Thyroid disease Surgical History Surgical History H/O repair of rotator cuff H/O: hysterectomy Hx of cholecystectomy Family History Family History Grandparent Diabetes mellitus Family history of cardiovascular disease Sibling Family history of malignant neoplasm Mother Family history of Parkinson's disease Father Family history of Hodgkin's lymphoma Other Family history of arthritis Social History Social History Social History: Smoking packs per day: 1 Smoking cigarettes per day: 20.0 Years smoked: 30 Smoking pack-years: 30.00 Smoking status: Former smoker Tobacco type: cigarettes Second hand tobacco smoke exposure: Yes Smoking end date: 07/09/03 Alcohol intake: never Substance use: never Substance use type: does not use Lack of Transportation: No Lack of Food: Never True Current Housing: I Have Housing Concerned About Future Housing: No Difficulty Paying Gas/Electric Bills: No Difficulty Paying for Meds: No Currently Unemployed: Decline to Answer Education: High School Diploma/GED Difficulty w/ Childcare or Family Care: No Living arrangements: alone Occupation/Education: retired Gender identity (if verbalized by the patient): Female Sexual Orientation (if Verbalized by the Patient): Straight or Heterosexual Spiritual care concerns: No Anes - Eval Final PreProcedure Day of Procedure 06/03/25 09:33 Patient weight: obese Heart: regular rate and rhythm Lungs: decreased breath sounds Airway: Mallampati scale class III Neurological: alert and oriented Last oral intake: >/= 8 hours ASA classification: IV Emergent: no Anesthetic plan: proceed Anesthesia type and monitoring: general ETT and standard monitoring Results Review: All pre-operative results and documents have been reviewed as part of the pre-operative evaluation. Informed Consent: The patient's anesthetic plan and its attendant risks and benefits were discussed with the patient/family/POA. Questions were solicited and answers provided to the satisfaction of the patient/family/POA.
--- NOTE | 2025-06-03 10:46 | WPDHPUPDATE1 ---
History and Physical Update Update Date/Time: 06/03/25 10:46 History and Physical has been reviewed, including an updated exam of the patient. There are NO changes in the patient's condition. Risks, benefits, and alternatives have been discussed and questions answered. Patient agrees to proceed with procedure.
[2025-06-03] MEDS: ceFAZolin 2 GM in SODIUM CHLORIDE 0.9% IV 50 ML 100 ML IVPB ×2 (11:01→18:27)
[2025-06-03] MEDS: BUPIVACAINE/EPINEPHRINE 0.5% 50 ML VIAL 20 ML INFILTRATE (11:38)
--- NOTE | 2025-06-03 14:02 | W.PM.PROC2 ---
Procedure Note - Detailed Date of Procedure 06/03/25 Pre-op Diagnosis Cervical Myelopathy Post-op Diagnosis Same Procedure Performed 1. Anterior cervical discectomy and foraminotomy at C4-5, C5-6 2. Anterior interbody placement at C4-5, C5-6 3. Arthrodesis of C4-5, C5-6 4. Preparation and placement of osteopromotive allograft for arthrodesis 5. Utilization of intraoperative C-Arm XR image guidance 6. Microscopic dissection Surgeon Caron Aparicio MD Hydraulic Plumber Helper Victorino Anesthesia General Description of Procedure The patient was taken to the operating room and was transferred to the operating table in the supine position. General anesthesia was induced. Pressure points were appropriately padded, and compression devices were placed on the patient's calves. A shoulder roll was placed. The previous surgical site was marked, and the appropriate level was confirmed with the C-arm XR imaging. The patient was prepped and draped in usual sterile fashion. Perioperative antibiotics were given. Time out was performed. Local anesthesia was injected into the planned incision site. Incision was made with a 10-blade scalpel. The subcutaneous tissue was undermined above the platysma with the Metzenbaum scissors. The platysma was sharply opened horizontally. Bleeding was controlled with the bipolar. The avascular plane to the spine was dissected sharply. The anterior border of the spine was located and exposed with sharp and blunt dissection. A spinal needle was used to localize the C5-6 disc space just above the cervical plate; this was confirmed on fluoroscopy. The longus coli muscles were elevated bilaterally with a bovie. Once the C4, C5, and C6 vertebral bodies and adjacent intervertebral discs were adequately exposed, self-retaining retractors were placed. [place] pins were placed in the C4 and C5 vertebral bodies and were distracted. A 15-blade scalpel was used to incise the C4-5 disc. A combination of Kerrisons, currettes, and pituitary instruments were used to remove each disc. The microscope was draped and brought into the surgical field. The removal of disc and osteophytes were completed using a high-speed drill, multiple Kerrison punches, and angled currettes. The posterior longitudinal ligament was opened with a currette and kerrison rongeurs until the neuroforamen bilaterally were adequately decompressed. Interbody trial instruments were used to determine the appropriate size for the prosthetic vertebral interbody cage. Hemostasis was achieved in the disc space with Floseal and cottonoid patties. A 5mm implant was filled with Magnetos and placed at the C4-5 level. This process was repeated at the C5-6 disc. The disc was removed as described above, and the posterior longitudinal ligament was opened until the neuroforamen bilaterally were adequately decompressed. Interbody trial instruments were used to determine the appropriate size for the prosthetic vertebral interbody cage. Hemostasis was achieved in the disc space. A 5mm implant was filled with Magnetos and placed at the C5-6 level. The [place] pins were removed, and bone wax was used for hemostasis. Osteophytes over the vertebral bodies were removed with a Leksell and high-speed drill. A 28mm plate was placed over the vertebral bodies and secured with 14mm screws. Accurate hardware placement was confirmed with fluoroscopy. The surgical cavity was copiously irrigated; appropriate hemostasis was verified; and there was no evidence of dural tear/CSF leak. The platysma was closed with interrupted 3-0 Vicryl, followed by interrupted 3-0 Vicryl for the dermis, and 4-0 running subcuticular monocryl for the skin. Dermabond was placed. The patient was extubated, transferred to the bed, and taken to the PACU without incident. Billing codes: 35425, 34318, 75110, [id number], 54509 Estimated Blood Loss 25 Drains No Packing No Pathology None sent Complications None Condition Stable Disposition PACU [facility] Billing Surgery - Charge Forward: Surgery Billing
--- NOTE | 2025-06-03 14:43 | SUR.PHASEI ---
1440: Dr. Hawa Savage with anesthesia here to perform nerve block on patient to left leg.
[2025-06-03] MEDS: fentaNYL CITRATE INJ (*CRX) 100 MCG/2 ML VIAL 25 MCG IV PUSH ×4 (15:05→15:54)
--- NOTE | 2025-06-03 16:07 | ADMGEN ---
This patient, Sarina Guzman, was admitted to -. Patient/family oriented to hospital policies and general routines including ID bracelet, bed and alarms, visiting hours, pain management, procedures, bathroom and other care routines, personal items, smoking policy, room service/diet, and visiting hours. Information on how to activate the Rapid Response Team has been discussed. Patient/Family are encouraged to report perceived risks to care and to ask questions if they do not understand what they are told or what they should do.
[2025-06-03] MEDS: SODIUM CHLORIDE 0.9% IV 1,000 ML 100 ML IV CONT (16:52)
[2025-06-03] MEDS: oxyCODONE HCL (*CRX) 5 MG TAB IR PO (16:53)
[2025-06-03] MEDS: PREGABALIN (*CRX) 50 MG CAPSULE 200 MG PO (16:53)
[2025-06-03] MEDS: DOCUSATE SODIUM 100 MG CAPSULE PO (20:54)
[2025-06-03] MEDS: ACETAMINOPHEN 500 MG TABLET 1000 MG PO (20:54)
[2025-06-03] MEDS: oxyCODONE HCL (*CRX) 5 MG TAB IR 10 MG PO (22:54)
[2025-06-04] MEDS: ceFAZolin 2 GM in SODIUM CHLORIDE 0.9% IV 50 ML 100 ML IVPB ×2 (02:47→10:14)
[2025-06-04 03:15] VITALS: BP 155/57; PULSE 81; RESP 13; TEMP 36.1; O2SAT 98
[2025-06-04] MEDS: ACETAMINOPHEN 500 MG TABLET 1000 MG PO ×2 (03:19→10:15)
[2025-06-04 04:26] VITALS: BP 125/55; PULSE 79; RESP 14; TEMP 36.1; O2SAT 98
[2025-06-04] MEDS: oxyCODONE HCL (*CRX) 5 MG TAB IR 10 MG PO (04:48)
[2025-06-04] MEDS: LEVOTHYROXINE SODIUM 125 MCG TABLET PO (06:36)
[2025-06-04] MEDS: PRAVASTATIN SODIUM 20 MG TABLET PO (08:22)
[2025-06-04] MEDS: PANTOPRAZOLE 40 MG TABLET PO (08:22)
[2025-06-04] MEDS: PYRIDOXINE HCL 50 MG TABLET 100 MG PO (08:22)
[2025-06-04] MEDS: ESCITALOPRAM OXALATE 10 MG TABLET PO (08:22)
[2025-06-04] MEDS: LOSARTAN POTASSIUM 100 MG TABLET BY MOUTH (08:23)
[2025-06-04] MEDS: DOCUSATE SODIUM 100 MG CAPSULE PO (08:23)
[2025-06-04] MEDS: PREGABALIN (*CRX) 50 MG CAPSULE 200 MG PO (08:24)
[2025-06-04 08:29] VITALS: BP 137/68; PULSE 73; RESP 16; TEMP 36.1; O2SAT 94
[2025-06-04 11:40] VITALS: PULSE 77; O2SAT 97
== END 2025-06-04 12:15 | disposition home or self-care (01) ==
LOC: ANHSURGERY 14:07 → ANH3MEDSUR 16:09
PROVIDERS: PCP Family Medicine; Visit Provider Neurological Surgery
PROC: (CPT 63030; principal; 2025-06-03 10:30)
DX: M50.221 Other cervical disc displacement at C4-C5 level (principal); M50.222 Other cervical disc displacement at C5-C6 level; M48.02 Spinal stenosis, cervical region; M25.78 Osteophyte, vertebrae; E78.5 Hyperlipidemia, unspecified; I12.9 Hypertensive chronic kidney disease with stage 1 through stage 4 chronic kidney disease, or unspecified chronic kidney disease; E11.22 Type 2 diabetes mellitus with diabetic chronic kidney disease; N18.30 Chronic kidney disease, stage 3 unspecified; E03.9 Hypothyroidism, unspecified; M06.09 Rheumatoid arthritis without rheumatoid factor, multiple sites; M06.042 Rheumatoid arthritis without rheumatoid factor, left hand; M06.041 Rheumatoid arthritis without rheumatoid factor, right hand; F32.A Depression, unspecified; K58.9 Irritable bowel syndrome, unspecified; E66.9 Obesity, unspecified; Z68.33 Body mass index [BMI] 33.0-33.9, adult; Z79.891 Long term (current) use of opiate analgesic; Z98.890 Other specified postprocedural states; Z90.49 Acquired absence of other specified parts of digestive tract; Z87.891 Personal history of nicotine dependence; Z80.7 Family history of other malignant neoplasms of lymphoid, hematopoietic and related tissues; Z82.49 Family history of ischemic heart disease and other diseases of the circulatory system
CPT/HCPCS: 22551; 22552; 22853 ×2; 36415; 86850; 86900; 86901; 97116; 97161; 97165; 97535; 99199; J0690; A9270; C1713; J0330; J1100; J1171; J2003; J2250; J2371; J2405; J2704; J3010; J7030; J7120